=== PATIENT | male | born 1970 | race Caucasian/White ===

== ENCOUNTER 2019-11-10 16:25 | Emergency (ER) | payer OTHER ==
[2019-11-10 16:31] VITALS: TEMP 98.1
[2019-11-10] MEDS ORDERED: SODIUM CHLORIDE 0.9% 1,000 ML IV STA (16:34)
--- NOTE | 2019-11-10 16:35 | ED ---
Neuro HPI - General Chief Complaint: Neuro Symptoms/Deficit Stated Complaint: RT side numbness Time Seen by Provider: 11/10/19 16:34 Source: patient, RN notes reviewed, old records reviewed Mode of arrival: ambulatory Limitations: no limitations - History of Present Illness Is the patient presenting with stroke symptoms?: No -: hour(s) Initial Comments: This is a 48-year-old male with no significant medical history is a smoker presenting with right-sided numbness and tingling. Right-sided symptoms with no facial symptoms. No weakness no decrease in sensation. No prior history of same. Patient was doing nothing physically active at the time. Mr. gonzalez actually no headache today. No recent traumas no change in medications denies drug or alcohol abuse. Patient states symptoms are mildly improving on arrival to the hospital. Patient does not follow closely with the family physician and has no recent primary care evaluation Location: right arm, right leg History of same: No Place: home Severity: mild Quality: numb, tingling Improves With: time Worsens With: none On Anticoagulants: No Context: gradual onset Associated Symptoms: denies other symptoms Treatments Prior to Arrival: none - Related Data Allergies/Adverse Reactions: Allergies Allergy/AdvReac Type Severity Reaction Status Date / Time latex Allergy Rash/Hives Verified 11/10/19 16:28 Review of Systems ROS Statement: Those systems with pertinent positive or pertinent negative responses have been documented in the HPI. ROS Other: All systems not noted in ROS Statement are negative. General Exam Limitations: no limitations Stroke MDM - Lab Data Result diagrams: 11/10/19 16:45 11/10/19 16:45 Lab Results 11/10/19 11/10/19 11/10/19 Range/Units 16:45 16:45 16:45 WBC 13.2 H (3.8-10.6) k/uL RBC 5.29 (4.30-5.90) m/uL Hgb 15.5 (13.0-17.5) gm/dL Hct 46.8 (39.0-53.0) % MCV 88.5 (80.0-100.0) fL MCH 29.4 (25.0-35.0) pg MCHC 33.2 (31.0-37.0) g/dL RDW 13.0 (11.5-15.5) % Plt Count 288 (150-450) k/uL Neutrophils % 58 % Lymphocytes % 32 % Monocytes % 6 % Eosinophils % 3 % Basophils % 0 % Neutrophils # 7.6 (1.3-7.7) k/uL Lymphocytes # 4.2 (1.0-4.8) k/uL Monocytes # 0.8 (0-1.0) k/uL Eosinophils # 0.4 (0-0.7) k/uL Basophils # 0.0 (0-0.2) k/uL PT 9.7 (9.0-12.0) sec INR 0.9 (<1.2) APTT 25.3 (22.0-30.0) sec Sodium 138 (137-145) mmol/L Potassium 4.2 (3.5-5.1) mmol/L Chloride 106 (98-107) mmol/L Carbon Dioxide 23 (22-30) mmol/L Anion Gap 9 mmol/L BUN 14 (9-20) mg/dL Creatinine 0.60 L (0.66-1.25) mg/dL Est GFR (CKD-EPI)AfAm >90 (>60 ml/min/1.73 sqM) Est GFR (CKD-EPI)NonAf >90 (>60 ml/min/1.73 sqM) Glucose 93 (74-99) mg/dL Calcium 9.9 (8.4-10.2) mg/dL Total Bilirubin 0.5 (0.2-1.3) mg/dL AST 21 (17-59) U/L ALT 21 (4-49) U/L Alkaline Phosphatase 155 H (38-126) U/L Creatine Kinase 155 (55-170) U/L Troponin I (0.000-0.034) ng/mL Total Protein 7.6 (6.3-8.2) g/dL Albumin 4.4 (3.5-5.0) g/dL 11/10/19 Range/Units 16:45 WBC (3.8-10.6) k/uL RBC (4.30-5.90) m/uL Hgb (13.0-17.5) gm/dL Hct (39.0-53.0) % MCV (80.0-100.0) fL MCH (25.0-35.0) pg MCHC (31.0-37.0) g/dL RDW (11.5-15.5) % Plt Count (150-450) k/uL Neutrophils % % Lymphocytes % % Monocytes % % Eosinophils % % Basophils % % Neutrophils # (1.3-7.7) k/uL Lymphocytes # (1.0-4.8) k/uL Monocytes # (0-1.0) k/uL Eosinophils # (0-0.7) k/uL Basophils # (0-0.2) k/uL PT (9.0-12.0) sec INR (<1.2) APTT (22.0-30.0) sec Sodium (137-145) mmol/L Potassium (3.5-5.1) mmol/L Chloride (98-107) mmol/L Carbon Dioxide (22-30) mmol/L Anion Gap mmol/L BUN (9-20) mg/dL Creatinine (0.66-1.25) mg/dL Est GFR (CKD-EPI)AfAm (>60 ml/min/1.73 sqM) Est GFR (CKD-EPI)NonAf (>60 ml/min/1.73 sqM) Glucose (74-99) mg/dL Calcium (8.4-10.2) mg/dL Total Bilirubin (0.2-1.3) mg/dL AST (17-59) U/L ALT (4-49) U/L Alkaline Phosphatase (38-126) U/L Creatine Kinase (55-170) U/L Troponin I <0.012 (0.000-0.034) ng/mL Total Protein (6.3-8.2) g/dL Albumin (3.5-5.0) g/dL - NIH Stroke Scale 1a. Level of Consciousness: (0) alert 1b. LOC Questions: (0) answers correctly 1c. LOC Commands: (0) performs tasks correctly 2. Best Gaze: (0) normal 3. Visual: (0) no visual loss 4. Facial Palsy: (0) normal symmetrical movement 5a. Motor Arm Left: (0) no drift 5b. Motor Arm Right: (0) no drift 6a. Motor Leg Left: (0) no drift 6b. Motor Leg Right: (0) no drift 7. Limb Ataxia: (0) absent 8. Sensory: (0) normal 9. Best Language: (0) no aphasia 10. Dysarthria: (0) normal 11. Extinction/Inattention: (0) no abnormality - Thrombolytic Inclusion/Exclusion Thrombolytic Inclusion Criteria: Symptom Onset < 4.5 h Thrombolytic Contraindications: Rapidly Improving s/s - Radiology Data Radiology results: report reviewed (CT brain CT had neck negative for acute disease), image reviewed - EKG Data -: EKG Interpreted by Me (EKG shows sinus at rate of 94, PA 170, QRS 96, QTC 427) Past Medical History Past Medical History: No Reported History History of Any Multi-Drug Resistant Organisms: None Reported Past Surgical History: No Surgical Hx Reported Past Psychological History: No Psychological Hx Reported Smoking Status: Current every day smoker Past Alcohol Use History: None Reported Past Drug Use History: None Reported Course Vital Signs 11/10/19 11/10/19 11/10/19 16:26 17:10 17:55 Temperature 98.1 F Pulse Rate 104 H 90 78 Respiratory 18 16 16 Rate Blood Pressure 196/116 164/105 129/78 O2 Sat by Pulse 94 L 98 98 Oximetry - Reevaluation(s) Reevaluation #1: 11/10/19 18:15 records reviewed Reevaluation #2: 11/10/19 18:15 patientstates all symptoms are completely resolved, preferring discharge home Disposition Clinical Impression: Paresthesia of right arm and leg Disposition: HOME SELF-CARE Condition: Good Instructions (If sedation given, give patient instructions): Paresthesia (ED) Is patient prescribed a controlled substance at d/c from ED?: No Referrals: None,Stated [Primary Care Provider] - 1-2 days
--- NOTE | 2019-11-10 16:53 | CT ---
EXAMINATION TYPE: CT brain wo con for TPA DATE OF EXAM: 11/10/2019 COMPARISON: 12/29/2009 HISTORY: Right arm and leg weakness. CT DLP: 1004.5 mGycm Automated exposure control for dose reduction was used. There is mild cerebral atrophy. There is no mass effect nor midline shift. There is no sign of intrac ranial hemorrhage. Calvarium is intact. There is mucosal thickening in the frontal and ethmoid and ma xillary sinuses. I see no bony destructive process. IMPRESSION: Mild cerebral atrophy. No acute intracranial abnormality.. Sinusitis. Sinusitis also present on old e xam.
[2019-11-10 17:10] VITALS: RESP 16
[2019-11-10 17:23] LABS: Basophils % (A) 0 %; Eosinophils # (A) 0.4 k/uL (0-0.7); Eosinophils % (A) 3 %; HCT 46.8 % (39.0-53.0); HGB 15.5 gm/dL (13.0-17.5); Lymphocytes # (A) 4.2 k/uL (1.0-4.8); Lymphocytes % (A) 32 %; MCH 29.4 pg (25.0-35.0); MCHC 33.2 g/dL (31.0-37.0); MCV 88.5 fL (80.0-100.0); Mean Platelet Volume 10.5; Monocytes # (A) 0.8 k/uL (0-1.0); Monocytes % (A) 6 %; Neutrophils # (A) 7.6 k/uL (1.3-7.7); Neutrophils % (A) 58 %; Platelet Count 288 k/uL (150-450); RBC 5.29 m/uL (4.30-5.90); WBC 13.2 k/uL (3.8-10.6)
[2019-11-10 17:33] LABS: ALT 21 U/L (4-49); AST 21 U/L (17-59); African American GFR (CKD) >90 (>60 ml/min/1.73 sqM); Albumin 4.4 g/dL (3.5-5.0); Alkaline Phosphatase 155 U/L (38-126); Anion Gap 9 mmol/L; Blood Urea Nitrogen 14 mg/dL (9-20); Calcium 9.9 mg/dL (8.4-10.2); Carbon Dioxide 23 mmol/L (22-30); Chloride 106 mmol/L (98-107); Creatine Kinase 155 U/L (55-170); Glucose 93 mg/dL (74-99); INR 0.9 (<1.2); Non-African American GFR(CKD) >90 (>60 ml/min/1.73 sqM); Partial Thromboplastin Time 25.3 sec (22.0-30.0); Potassium 4.2 mmol/L (3.5-5.1); Prothrombin Time 9.7 sec (9.0-12.0); Sodium 138 mmol/L (137-145); Total Bilirubin 0.5 mg/dL (0.2-1.3); Total Protein 7.6 g/dL (6.3-8.2)
--- NOTE | 2019-11-10 17:36 | CT ---
EXAMINATION TYPE: CT angio head neck DATE OF EXAM: 11/10/2019 COMPARISON: None HISTORY: Right arm and leg weakness. CT DLP: 491.3 mGycm Automated exposure control for dose reduction was used. CONTRAST: Performed with IV Contrast, patient injected with 65 mL of Isovue 370. There are 3-D post processed images. There is normal branching pattern of the great vessels on the aortic arch. There is bilateral arteria l flow in the subclavian arteries. There is bilateral arterial flow in the vertebral arteries which a re fairly symmetric. There is arterial flow in the vertebrobasilar artery system. There is bilateral arterial flow in the common internal and external carotid arteries. There is minim al plaque at the carotid artery bifurcations. Lumen narrowing is less than 10%. There is no evidence of carotid or vertebral artery aneurysm or dissection. There is arterial flow in the anterior middle and posterior cerebral arteries. There is arterial flow in the posterior communicating arteries bilaterally. There is no mass effect. There is no evidence o f intracranial aneurysm or neovascularity. I see no sign of hemodynamic stenosis. There is normal con trast opacification of the venous sinuses. There is mucosal thickening in the ethmoid and maxillary sinuses. There is mucosal frontal sinus thic kening. IMPRESSION: Negative CT angiogram of the neck. Negative CT angiogram of the brain. Sinusitis.
[2019-11-10 17:56] VITALS: BP 129/78; PULSE 78
== END 2019-11-10 18:30 | disposition home or self-care (01) ==
LOC: EC 16:25
DX: R20.2 Paresthesia of skin (principal); R00.0 Tachycardia, unspecified; R20.0 Anesthesia of skin; F17.200 Nicotine dependence, unspecified, uncomplicated; Z91.040 Latex allergy status
CPT/HCPCS: 99285; 96360; 36415; 93005; 80053; 82550; 84484; 85025; 85610; 85730; 70496; 70450; 70498; Q9967

== ENCOUNTER 2019-11-11 13:47 | Inpatient (IN) | payer OTHER ==
[2019-11-11] MEDS ORDERED: SODIUM CHLORIDE 0.9% 500 ML 500 ML IV STA (14:18)
--- NOTE | 2019-11-11 14:26 | ED ---
General Adult HPI - General Chief complaint: Neuro Symptoms/Deficit Stated complaint: Recheck R Side Numbness Time Seen by Provider: 11/11/19 14:10 Source: patient Mode of arrival: wheelchair Limitations: no limitations - History of Present Illness Initial comments: Dictation was produced using [employer] dictation software. please excuse any grammatical, word or spelling errors. Chief Complaint: 48-year-old male presents today with strokelike symptoms. History of Present Illness: Patient is a 48-year-old male presents today with strokelike symptoms. Patient states he has paresthesias to his right arm and right lower leg. Patient was seen in the emergency department yesterday and diagnosed with paresthesias of the right arm and leg. Patient reports that during his stay in the emergency department his symptoms fully resolved. He was discharged and told to return to the emergency department if his symptoms return. Patient states that at 12 midnight symptoms came back. He took a nap and woke up with persistent symptoms. Satting come back to the emergency department. Patient complains of dealing sensation to his right arm and right leg. Patient also notes some weakness to his right side as well. The ROS documented in this emergency department record has been reviewed and confirmed by me. Those systems with pertinent positive or negative responses have been documented in the HPI. All other systems are other negative and/or noncontributory. PHYSICAL EXAM: General Impression: Alert and oriented x3, not in acute distress HEENT: Normocephalic atraumatic, extra-ocular movements intact, pupils equal and reactive to light bilaterally, mucous membranes moist. Cardiovascular: Heart regular rate and rhythm, S1&S2 audible, no murmurs, rubs or gallops Chest: Lungs clear to auscultation bilaterally, no rhonchi, no wheeze, no rales Abdomen: Bowel sounds present, abdomen soft, non-tender, non-distended, no organomegaly Musculoskeletal: Pulses present and equal in all extremities, no peripheral edema Motor: no focal deficits noted Neurological: CN II-XII grossly intact, no facial droop, mild drift of the right arm and right leg, and aphasic, not ataxic, diminished sensation to light touch of the right upper and right lower extremity. Skin: Intact with no visualized rashes Psych: Normal affect and mood ED course: 48-year-old male presents with strokelike symptoms. Patient had symptoms yesterday however his symptoms resolved and he was discharged home. Patient had recurrence of symptoms at 12 AM last night. Patient is outside of TPA window. Proximally 14 hours since his last known normal.. Signs upon arrival shows heart rate of 113. Patient given an NIH of 3 for right upper or lower extremity drift and sensory deficit to the right. Code stroke was paged. Chart review was performed from yesterday. Patient did have a CT and CT angiogram of the head and neck done yesterday. Both of those imaging studies were negative. Discussed patient case with Dr. Chopra who recommends patient be admitted for MRI. He did agree with repeating the noncontrast computed tomography scan of the head. She is given aspirin. Return evaluation obtained. Mild leukocytosis of 12.5. Coag panel unremark able. Metabolic panel is negative. Computed tomography scan of the brain was obtained showing no acute abnormalities. Patient's states that his symptoms improved only after the CT was obtained. Patient be admitted to Dr. covarrubias. Neurology on consultation. Patient given aspirin. EKG interpretation: Ventricular rate 86, normal sinus rhythm, UT interval 172, QRS 84, QTC 428. No UT prolongation, no QTC prolongation, no ST or T-wave changes noted. EKG compared to [default value] showing no changes. Overall, this EKG is unremarkable - Related Data Previous Rx's Medication Instructions Recorded Ciprofloxacin HCl [Cipro] 500 mg PO Q12HR #14 tablet 11/10/19 Allergies Allergy/AdvReac Type Severity Reaction Status Date / Time latex Allergy Rash/Hives Verified 11/11/19 14:03 Review of Systems ROS Statement: Those systems with pertinent positive or pertinent negative responses have been documented in the HPI. ROS Other: All systems not noted in ROS Statement are negative. Past Medical History Past Medical History: No Reported History History of Any Multi-Drug Resistant Organisms: None Reported Past Surgical History: No Surgical Hx Reported Past Psychological History: No Psychological Hx Reported Smoking Status: Current every day smoker Past Alcohol Use History: None Reported Past Drug Use History: None Reported General Exam Limitations: no limitations Course Vital Signs 11/11/19 11/11/19 11/11/19 14:01 14:10 15:06 Temperature 97.9 F Pulse Rate 113 H 76 104 H Respiratory 18 16 16 Rate Blood Pressure 144/93 131/75 150/86 O2 Sat by Pulse 99 99 99 Oximetry Medical Decision Making - Lab Data Result diagrams: 11/11/19 14:26 11/11/19 14:26 Lab Results 11/11/19 11/11/19 11/11/19 Range/Units 14:26 14:26 14:26 WBC 12.5 H (3.8-10.6) k/uL RBC 5.50 (4.30-5.90) m/uL Hgb 16.0 (13.0-17.5) gm/dL Hct 49.1 (39.0-53.0) % MCV 89.1 (80.0-100.0) fL MCH 29.0 (25.0-35.0) pg MCHC 32.5 (31.0-37.0) g/dL RDW 13.0 (11.5-15.5) % Plt Count 269 (150-450) k/uL Neutrophils % 67 % Lymphocytes % 24 % Monocytes % 4 % Eosinophils % 3 % Basophils % 0 % Neutrophils # 8.4 H (1.3-7.7) k/uL Lymphocytes # 3.0 (1.0-4.8) k/uL Monocytes # 0.5 (0-1.0) k/uL Eosinophils # 0.4 (0-0.7) k/uL Basophils # 0.0 (0-0.2) k/uL PT 10.2 (9.0-12.0) sec INR 0.9 (<1.2) APTT 24.2 (22.0-30.0) sec Sodium 140 (137-145) mmol/L Potassium 4.7 (3.5-5.1) mmol/L Chloride 106 (98-107) mmol/L Carbon Dioxide 24 (22-30) mmol/L Anion Gap 10 mmol/L BUN 15 (9-20) mg/dL Creatinine 0.63 L (0.66-1.25) mg/dL Est GFR (CKD-EPI)AfAm >90 (>60 ml/min/1.73 sqM) Est GFR (CKD-EPI)NonAf >90 (>60 ml/min/1.73 sqM) Glucose 123 H (74-99) mg/dL Calcium 9.8 (8.4-10.2) mg/dL Total Bilirubin 0.9 (0.2-1.3) mg/dL AST 22 (17-59) U/L ALT 22 (4-49) U/L Alkaline Phosphatase 141 H (38-126) U/L Troponin I (0.000-0.034) ng/mL Total Protein 7.4 (6.3-8.2) g/dL Albumin 4.1 (3.5-5.0) g/dL 11/11/ Range/Units 14:26 WBC (3.8-10.6) k/uL RBC (4.30-5.90) m/uL Hgb (13.0-17.5) gm/dL Hct (39.0-53.0) % MCV (80.0-100.0) fL MCH (25.0-35.0) pg MCHC (31.0-37.0) g/dL RDW (11.5-15.5) % Plt Count (150-450) k/uL Neutrophils % % Lymphocytes % % Monocytes % % Eosinophils % % Basophils % % Neutrophils # (1.3-7.7) k/uL Lymphocytes # (1.0-4.8) k/uL Monocytes # (0-1.0) k/uL Eosinophils # (0-0.7) k/uL Basophils # (0-0.2) k/uL PT (9.0-12.0) sec INR (<1.2) APTT (22.0-30.0) sec Sodium (137-145) mmol/L Potassium (3.5-5.1) mmol/L Chloride (98-107) mmol/L Carbon Dioxide (22-30) mmol/L Anion Gap mmol/L BUN (9-20) mg/dL Creatinine (0.66-1.25) mg/dL Est GFR (CKD-EPI)AfAm (>60 ml/min/1.73 sqM) Est GFR (CKD-EPI)NonAf (>60 ml/min/1.73 sqM) Glucose (74-99) mg/dL Calcium (8.4-10.2) mg/dL Total Bilirubin (0.2-1.3) mg/dL AST (17-59) U/L ALT (4-49) U/L Alkaline Phosphatase (38-126) U/L Troponin I <0.012 (0.000-0.034) ng/mL Total Protein (6.3-8.2) g/dL Albumin (3.5-5.0) g/dL Critical Care Time Critical Care Time: Yes (31) Disposition Clinical Impression: Stroke-like symptoms Disposition: ADMITTED IP TO THIS [facility] Condition: Fair Referrals: None,Stated [Primary Care Provider] - 1-2 days Decision Time: 15:35
[2019-11-11] MEDS ORDERED: ASPIRIN 81 MG PO STA (14:31)
[2019-11-11 14:44] LABS: Basophils % (A) 0 %; Eosinophils # (A) 0.4 k/uL (0-0.7); Eosinophils % (A) 3 %; HCT 49.1 % (39.0-53.0); Lymphocytes % (A) 24 %; MCHC 32.5 g/dL (31.0-37.0); MCV 89.1 fL (80.0-100.0); Mean Platelet Volume 9.8; Monocytes # (A) 0.5 k/uL (0-1.0); Monocytes % (A) 4 %; Neutrophils # (A) 8.4 k/uL (1.3-7.7); Neutrophils % (A) 67 %; Platelet Count 269 k/uL (150-450); WBC 12.5 k/uL (3.8-10.6)
--- NOTE | 2019-11-11 14:46 | CT ---
EXAMINATION TYPE: CT brain wo con DATE OF EXAM: 11/11/2019 COMPARISON: Yesterday HISTORY: Right sided weakness. CT DLP: 1070.4 mGycm Automated exposure control for dose reduction was used. Ventricles have normal size. There is no mass effect nor midline shift. There is no sign of intracran ial hemorrhage. There is mucosal thickening left maxillary sinus. There is ethmoid sinus mucosal thic kening. There is no evidence of cortical infarct. IMPRESSION: Mild Atrophy. No acute intracranial abnormality. Sinusitis. No change compared to yesterday.
[2019-11-11 14:52] LABS: ALT 22 U/L (4-49); AST 22 U/L (17-59); African American GFR (CKD) >90 (>60 ml/min/1.73 sqM); Albumin 4.1 g/dL (3.5-5.0); Alkaline Phosphatase 141 U/L (38-126); Anion Gap 10 mmol/L; Blood Urea Nitrogen 15 mg/dL (9-20); Calcium 9.8 mg/dL (8.4-10.2); Carbon Dioxide 24 mmol/L (22-30); Chloride 106 mmol/L (98-107); Glucose 123 mg/dL (74-99); Non-African American GFR(CKD) >90 (>60 ml/min/1.73 sqM); Potassium 4.7 mmol/L (3.5-5.1); Sodium 140 mmol/L (137-145); Total Bilirubin 0.9 mg/dL (0.2-1.3); Total Protein 7.4 g/dL (6.3-8.2)
[2019-11-11 15:09] LABS: INR 0.9 (<1.2); Partial Thromboplastin Time 24.2 sec (22.0-30.0); Prothrombin Time 10.2 sec (9.0-12.0)
[2019-11-12 06:28] LABS: Cholesterol 169 mg/dL (<200); HDL Cholesterol 26 mg/dL (40-60); LDL Cholesterol,Calculated 115 mg/dL (0-99); Triglycerides 140 mg/dL (<150)
--- NOTE | 2019-11-12 07:20 | XR ---
EXAMINATION TYPE: XR chest 1V DATE OF EXAM: 11/12/2019 HISTORY: leukocytosis . REFERENCE: Previous study dated 1:31 PM. FINDINGS: The lungs are clear. Pleural spaces are clear. Heart is not enlarged. IMPRESSION: NO ACTIVE INTRATHORACIC DISEASE
[2019-11-12] MEDS: ASPIRIN 325 MG TAB PO SCH (07:42)
[2019-11-12] MEDS: CYANOCOBALAMIN 500 MCG TAB PO SCH (07:42)
[2019-11-12] MEDS: HEPARIN SODIUM,PORCINE 5,000 UNIT/ML 1 ML VIAL SQ SCH ×2 (07:44→20:28)
[2019-11-12] MEDS: FAMOTIDINE 20 MG/2 ML VIAL IV SCH ×2 (07:44→20:28)
[2019-11-12 08:55] LABS: Basophils % (A) 0 %; Eosinophils # (A) 0.3 k/uL (0-0.7); Eosinophils % (A) 3 %; HCT 47.7 % (39.0-53.0); HGB 15.5 gm/dL (13.0-17.5); Lymphocytes # (A) 3.1 k/uL (1.0-4.8); Lymphocytes % (A) 33 %; MCH 29.5 pg (25.0-35.0); MCHC 32.4 g/dL (31.0-37.0); MCV 90.9 fL (80.0-100.0); Mean Platelet Volume 11.1; Monocytes # (A) 0.5 k/uL (0-1.0); Monocytes % (A) 5 %; Neutrophils # (A) 5.4 k/uL (1.3-7.7); Neutrophils % (A) 57 %; Platelet Count 262 k/uL (150-450); RBC 5.25 m/uL (4.30-5.90); WBC 9.5 k/uL (3.8-10.6)
--- NOTE | 2019-11-12 09:00 | P.HPIM ---
History of Present Illness this is a pleasant 48 years old male with no significant past medical history. And he does not follow up with family physician. He works as high low taxi driver He presents with recurrent numbness and weakness in his right side and a lesser extent in the left upper extremity. Patient came to emergency room when day earlier for the same symptoms with some improvement has been discharged, he came again yesterday with similar symptoms. Patient mainly complaining of from numbness in the right upper and lower extremity and to lesser extent the left upper extremity. Patient states also he has some mild weakness and on examination his right side strength was suspicious as 4+/5, however there was minimal difference between both sides. Patient denies headache. No blurred vision or difficulty swallowing. No facial the patient. He smokes about 1 pack per day but he denies alcohol or illicit tracts patient is counseled and he does not want to quit. Patient denies nicotine patch on admission patient was tachycardic, however later on his vitals are more stable. labs show a leukocytosis of 12.5 K, with unremarkable INR, BMP and liver enzymes were unremarkable as well.troponin is negative.. EKG showing normal sinus rhythm at 86with no significant ST-T changes. CT of the brain showing mild atrophy with no acute intracranial abnormality. Chest x-ray and urinalysis were unremarkable. on admission patient was started on aspirin 325 mg Review of Systems CONSTITUTIONAL: No fever, no malaise, no fatigue. HEENT: No recent visual problems or hearing problems. Denied any sore throat. CARDIOVASCULAR: No orthopnea, PND, no palpitations, no syncope. PULMONARY: No shortness of breath, no cough, no hemoptysis. GASTROINTESTINAL: No diarrhea, no nausea, no vomiting, no abdominal pain. N ormoactive bowel sounds. NEUROLOGICAL: No headaches, no weakness, no numbness. HEMATOLOGICAL: Denies any bleeding or petechiae. GENITOURINARY: Denies any burning micturition, frequency, or urgency. MUSCULOSKELETAL/RHEUMATOLOGICAL: Denies any joint pain, swelling, or any muscle pain. ENDOCRINE: Denies any polyuria or polydipsia. Past Medical History Past Medical History: No Reported History History of Any Multi-Drug Resistant Organisms: None Reported Past Surgical History: No Surgical Hx Reported Additional Past Surgical History / Comment(s): Broke his left arm as a child. Broken nose and procedure to fix. Additional Past Anesthesia/Blood Transfusion Reaction / Comment(s): No previous blood transfusions. Past Psychological History: No Psychological Hx Reported Smoking Status: Current every day smoker Past Alcohol Use History: None Reported Past Drug Use History: None Reported - Past Family History Father Additional Family Medical History / Comment(s): Dad passed of heart disease at age 56. Had early onset Alzheimers. Mother History Unknown: Yes Additional Family Medical History / Comment(s): No known history, still living. Medications and Allergies Home Medications Medication Instructions Recorded Confirmed Type Cyanocobalamin (Vitamin B-12) 1,000 mcg PO DAILY 11/11/19 11/11/19 History [Vitamin B-12] Allergies Allergy/AdvReac Type Severity Reaction Status Date / Time latex Allergy Rash/Hives Verified 11/11/19 16:20 Physical Exam Vitals: Vital Signs Temp Pulse Pulse Resp BP BP Pulse Ox 11/12/19 03:20 98.1 F 91 16 130/71 99 11/11/19 23:30 98.3 F 95 16 126/65 96 11/11/19 19:30 98.2 F 92 16 127/67 96 11/11/19 17:07 76 16 131/76 99 11/11/19 16:13 81 16 133/87 99 11/11/19 16:06 97.7 F 92 16 135/81 95 11/11/19 15:06 104 H 16 150/86 99 11/11/19 14:10 76 16 131/75 99 11/11/19 14:01 97.9 F 113 H 18 144/93 99 Intake and Output 11/11/19 11/11/19 11/12/19 14:59 22:59 06:59 Intake Total 237 Balance 237 Intake: Oral 237 Other: # Voids 0 # Bowel Movements 0 Weight 78.925 kg 78.925 kg 76 kg GENERAL: The patient is alert and oriented x3, not in any acute distress. Well developed, well nourished. HEENT: Pupils are round and equally reacting to light. EOMI. No scleral icterus. No conjunctival pallor. Normocephalic, atraumatic. No pharyngeal erythema. No thyromegaly. CARDIOVASCULAR: S1 and S2 present. No murmurs, rubs, or gallops. PULMONARY: Chest is clear to auscultation, no wheezing or crackles. ABDOMEN: Soft, nontender, nondistended, normoactive bowel sounds. No palpable organomegaly. MUSCULOSKELETAL: No joint swelling or deformity. EXTREMITIES: No cyanosis, clubbing, or pedal edema. -NEUROLOGICAL: Cranial nerves are grossly intact. Right side strength is 4+/5 and sensation is intact in both sides. Left upper extremity strength is 4+/5 SKIN: No rashes. No petechiae Results CBC & Chem 7: 11/11/19 14:26 11/11/19 14:26 Labs: Abnormal Lab Results - Last 24 Hours (Table) 11/11/19 11/11/19 Range/Units 14:26 14:26 WBC 12.5 H (3.8-10.6) k/uL Neutrophils # 8.4 H (1.3-7.7) k/uL Creatinine 0.63 L (0.66-1.25) mg/dL Glucose 123 H (74-99) mg/dL Alkaline Phosphatase 141 H (38-126) U/L Thrombosis Risk Factor Assmnt - Choose All That Apply Any of the Below Risk Factors Present?: Yes Each Factor Represents 1 point: Age 41-60 years Other Risk Factors: No Thrombosis Risk Factor Assessment Total Risk Factor Score: 1 Thrombosis Risk Factor Assessment Level: Low Risk Assessment and Plan Assessment: Right side numbness and the sextant in the left upper extremity. Rule out TIA Mild leukocytosis, resolved mild cerebral atrophy Nicotine dependence Plan: this is a pleasant 48 years old male who presents with TIA. Continue with the neuro check. Check echocardiogram, check carotid duplex. Order chest x-ray and urinalysis. Neurology consult. Continue with aspirin Labs and medication were reviewed.. Continue same treatment. Continue with symptomatic treatment. Resume home medication. Monitor lytes and vitals. DVT and GI prophylaxis. Further recommendations of the clinical course of the patient DVT prophylaxis: Subcutaneous heparin GI Prophylaxis: Pepcid PT/OT: Pending Prognosis is guarded
[2019-11-12 10:05] LABS: Appearance,Urine Clear (Clear); Bilirubin,Urine Negative (Negative); Blood,Urine Negative (Negative); Color,Urine Light Yellow; Glucose,Urine (UA) Negative (Negative); Ketones,Urine Negative (Negative); Leukocyte Esterase,Urine Negative (Negative); Nitrite,Urine Negative (Negative); Protein,Urine Negative (Negative); Specific Gravity,Urine 1.004 (1.001-1.035); Urobilinogen,Urine <2.0 mg/dL (<2.0)
--- NOTE | 2019-11-12 11:48 | P.CNNES ---
History of Present Illness Consult date: 11/12/19 Requesting physician: Joseph Stokes Reason for Consult: TIA Chief complaint: right-sided weakness and numbness History of Present Illness: Mr. Al Santos is a 48-year-old, right-handed male who was seen in neurologic consultation on November 12, 2019, via teleneurology. He reported to the emergency department yesterday with complaints of numbness and weakness in his right leg. He also noted numbness and weakness in his right upper extremity which then began to involve his left upper extremity. Apparently the symptoms had been present the day before, at which time he also presented to the ER. His symptoms resolved and he was discharged home. He was advised to return if his symptoms returned. Patient reports that he was on break at work, when his symptoms began. He n oticed it initially in his right leg. He denies headache, neck pain and speech difficulties. He denies difficulty swallowing, facial numbness and weakness as well as changes in vision. Mr. Santos notes that when he came into the emergency department and was advised to sign his name, he was unable to. Mr. Santos denies a history of similar symptoms. He denies neck pain and headache. This morning, he feels as if his strength is a little bit better. Review of Systems All systems: negative Constitutional: Denies chills, Denies fever Past Medical History Past Medical History: No Reported History History of Any Multi-Drug Resistant Organisms: None Reported Past Surgical History: No Surgical Hx Reported Additional Past Surgical History / Comment(s): Broke his left arm as a child. Broken nose and procedure to fix. Additional Past Anesthesia/Blood Transfusion Reaction / Comment(s): No previous blood transfusions. Past Psychological History: No Psychological Hx Reported Smoking Status: Current every day smoker Past Alcohol Use History: None Reported Past Drug Use History: None Reported - Past Family History Father Additional Family Medical History / Comment(s): Dad passed of heart disease at age 56. Had early onset Alzheimers. Mother History Unknown: Yes Additional Family Medical History / Comment(s): No known history, still living. Medications and Allergies Home Medications Medication Instructions Recorded Confirmed Type Cyanocobalamin (Vitamin B-12) 1,000 mcg PO DAILY 11/11/19 11/11/19 History [Vitamin B-12] Allergies Allergy/AdvReac Type Severity Reaction Status Date / Time latex Allergy Rash/Hives Verified 11/11/19 16:20 Physical Examination - Vital Signs Vital Signs: Vital Signs Temp Pulse Pulse Resp BP BP Pulse Ox 11/12/19 07:33 97.5 F L 84 18 136/79 98 11/12/19 03:20 98.1 F 91 16 130/71 99 11/11/19 23:30 98.3 F 95 16 126/65 96 11/11/19 19:30 98.2 F 92 16 127/67 96 11/11/19 17:07 76 16 131/76 99 11/11/19 16:13 81 16 133/87 99 11/11/19 16:06 97.7 F 92 16 135/81 95 11/11/19 15:06 104 H 16 150/86 99 11/11/19 14:10 76 16 131/75 99 11/11/19 14:01 97.9 F 113 H 18 144/93 99 Intake and Output 11/11/19 11/12/19 11/12/19 22:59 06:59 14:59 Intake Total 237 240 Balance 237 240 Intake: Oral 237 240 Other: Voiding Method Toilet # Voids 0 1 # Bowel Movements 0 0 Weight 78.925 kg 76 kg Gen.: Patient is reclining in the bed. He is well-nourished, well-developed and in no acute distress. HEENT: Head is atraumatic, normocephalic. Fundus not visualized. There is no scleral icterus. Mucous membranes are moist. Neck: Supple without carotid bruits. Heart: Regular rate and rhythm Lungs: Clear to auscultation. Neurological examination Mental status: Patient is awake, alert and oriented 3. His speech is clear. There is no dysarthria or aphasia. Cranial nerves: Pupils are equal, round and reactive to light. Visual camacho are full to confrontation. Extraocular muscles are intact. There is no nystag mus. Facial sensation is intact. There is no facial asymmetry. Uvula and palate are midline. Shoulder shrug is symmetric. Tongue protrudes midline. 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 Proximal right upper extremity strength is 4+-5. Bilateral lower extremity strength is 5/5. Sensation: Intact to touch throughout. Coordination: There is right-sided dysmetria with [id number] testing. There is mild right-sided ataxia on [id number] testing. With rolling of the arms, the left arm rolls around the right arm. Deep tendon reflexes: 2+/4+ throughout. Plantar responses are equivocal. Gait: Not assessed Results CT scan of the brain reveals mild atrophy. No signs of acute hemorrhage or infarct. - Laboratory Findings CBC and BMP: 11/12/19 05:37 11/11/19 14:26 Abnormal Lab Findings: Abnormal Labs 11/11/19 11/11/19 11/12/19 14:26 14:26 05:37 WBC 12.5 H Neutrophils # 8.4 H Creatinine 0.63 L Glucose 123 H Alkaline Phosphatase 141 H LDL Cholesterol, Calc 115 H HDL Cholesterol 26 L Assessment and Plan Assessment: Impressions: 1) patient is a 48-year-old male with continued right-sided weakness, not involving the face. This weakness is likely secondary to a left-sided lacunar infarction. 2) tobacco abuse 3) leukocytosis 4) elevated alkaline phosphatase Plan: Recommendations: 1) MRI of the brain without gadolinium, to further elucidate stroke 2) patient should be started on aspirin 81 mg daily 3) high-dose statin should be started for stroke prevention 4) 2-D echocardiogram and carotid Doppler 5) physical therapy and occupational therapy consultations 6) speech therapy consultation Time with Patient: Greater than 30 (Pt is seen via teleneurology)
[2019-11-13] MEDS: CYANOCOBALAMIN 500 MCG TAB PO SCH (08:02)
[2019-11-13] MEDS: HEPARIN SODIUM,PORCINE 5,000 UNIT/ML 1 ML VIAL SQ SCH ×2 (08:02→20:12)
[2019-11-13] MEDS: FAMOTIDINE 20 MG TAB PO SCH ×2 (08:02→20:12)
[2019-11-13] MEDS: ASPIRIN 325 MG TAB PO SCH (08:02)
--- NOTE | 2019-11-13 15:10 | MR ---
MR brain without contrast HISTORY: Cerebral vascular accident, stroke, right-sided weakness Correlation to head CT 11/11/2019 Multiplanar multisequence imaging through the brain The left thalamus shows restricted diffusion consistent with acute/subacute infarct, corresponding de nsity changes on CT, signal changes on MRI are noted on T1, T2 and inversion recovery sequences. Ther e is no hemorrhage or hydrocephalus. Corpus callosum, pituitary, cervical medullary junction, cerebel lopontine angles are unremarkable. Extensive inflammatory change present within the mastoid air cells bilaterally, mucosal disease prese nt in the right maxillary sinus, air-fluid level in the left maxillary sinus, frontal sinus, correlat e for sinusitis. There are normal vascular flow voids. Orbits show symmetric appearance. IMPRESSION: Findings consistent with patient's history of cerebrovascular accident. Correlate for sin usitis, mastoiditis.
--- NOTE | 2019-11-13 18:55 | ECHOF ---
Referral Reason:tia MEASUREMENTS -------- HEIGHT: 182.9 cm WEIGHT: 75.7 kg BP: 125/63 RVIDd: 3.7 cm (< 3.3) IVSd: 1.3 cm (0.6 - 1.1) LVIDd: 3.8 cm (3.9 - 5.3) LVPWd: 1.2 cm (0.6 - 1.1) IVSs: 1.7 cm LVIDs: 2.7 cm LVPWs: 1.8 cm LAESV Index (A-L): 32.24 ml/m Ao Diam: 3.0 cm (2.0 - 3.7) AV Cusp: 1.9 cm (1.5 - 2.6) LA Diam: 4.3 cm (2.7 - 3.8) MV EXCURSION: 15.243 mm (> 18.000) MV EF SLOPE: 99 mm/s (70 - 150) EPSS: 0.7 cm MV E Nixon: 0.76 m/s MV DecT: 222 ms MV A Nixon: 0.86 m/s MV E/A Ratio: 0.88 RAP: 5.00 mmHg RVSP: 31.81 mmHg FINDINGS -------- Sinus rhythm. This was a technically adequate study. The left ventricular size is normal. There is mild concentric left ventricular hypertrophy. Overa ll left ventricular systolic function is normal with, an EF between 55 - 60 %. The diastolic fillin g pattern is normal for the age of the patient 9.97. The right ventricle is mildly enlarged. LA is midly dilated 29-33ml/m2. The right atrium is mildly enlarged. Interatrial and interventricular septum intact. The aortic valve is trileaflet and appears structurally normal. There is no evidence of aortic regu rgitation. There is no evidence of aortic stenosis. There is trace mitral regurgitation. Mild tricuspid regurgitation present. There is borderline pulmonary artery hypertension. The righ t ventricular systolic pressure, as measured by Doppler, is 31.81mmHg. There is no pulmonic regurgitation present. The aortic root size is normal. The inferior vena cava is mildly dilated. There is no pericardial effusion. CONCLUSIONS -------- 1. Sinus rhythm. 2. This was a technically adequate study. 3. The left ventricular size is normal. 4. There is mild concentric left ventricular hypertrophy. 5. Overall left ventricular systolic function is normal with, an EF between 55 - 60 %. 6. The diastolic filling pattern is normal for the age of the patient 9.97 7. The right ventricle is mildly enlarged. 8. LA is midly dilated 29-33ml/m2. 9. The right atrium is mildly enlarged. 10. Interatrial and interventricular septum intact. 11. The aortic valve is trileaflet and appears structurally normal. 12. There is no evidence of aortic regurgitation. 13. There is no evidence of aortic stenosis. 14. There is trace mitral regurgitation. 15. Mild tricuspid regurgitation present. 16. There is borderline pulmonary artery hypertension. 17. The right ventricular systolic pressure, as measured by Doppler, is 31.81mmHg. 18. There is no pulmonic regurgitation present. 19. The aortic root size is normal. 20. The inferior vena cava is mildly dilated. 21. There is no pericardial effusion. ASSOCIATE EDITOR: Elaine Murphy RDCS
--- NOTE | 2019-11-13 21:25 | P.PN ---
Progress Note - Text Progress Note Date: 11/13/19 Subjective: Patient continues to report R-sided weakness along with numbness and tingling. Denies any headache, nausea, vomiting, worsening weakness or paresthesias. Patient has been working with therapists, recommended using walker for safety. Objective: Gen.: NAD Neurological examination Mental status: Patient is awake, alert and oriented 3. His speech is clear. There is no dysarthria or aphasia. Cranial nerves: Pupils are equal, round and reactive to light. Visual camacho are full to confrontation. Extraocular muscles are intact. There is no nystagmus. Facial sensation is intact. There is no facial asymmetry. Uvula and palate are midline. Shoulder shrug is symmetric. Tongue protrudes midline. 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 Proximal right upper extremity strength is 4+/5. Bilateral lower extremity strength is 5/5. Sensation: Decreased sensation to LT In RUE and RLE Coordination: There is right-sided dysmetria with [id number] testing. Deep tendon reflexes: 2+/4+ throughout. Plantar responses are equivocal. Gait: Cautious gait, prefers L over right. 11/11/19 14:26 Abnormal Lab Findings: Abnormal Labs 11/11/19 11/11/19 11/12/19 14:26 14:26 05:37 WBC 12.5 H Neutrophils # 8.4 H Creatinine 0.63 L Glucose 123 H Alkaline Phosphatase 141 H LDL Cholesterol, Calc 115 H HDL Cholesterol 26 L Results: MRI brain w/o contrast: acute L thalamic stroke TTE: SR, EF 55-60%. LV normal size. RV is mildly enlarged. LA is mildly dilated. RA is mildly dilated. Interatrial and interventricular septum intact. Assessment and Plan Assessment: Mr. Santos is a 48-year-old male with continued right-sided weakness, not involving the face. This weakness is likely secondary to a left-sided lacunar infarction. MRI brain showing L thalamic stroke, etiology small vessel disease. Patient is a heavy smoker. Recommendations: 1) aspirin 81 mg daily 2) atorvastatin 80mg qhs 3) follow up with outpatient neurologist within 2-3 weeks of discharge. 4) Discussed the importance of preventing future strokes, especially with quitting smoking, eating better and exercising. Patient showed understanding 5) Neurology will sign off at this time. Please contact us again with additional questions or concerns.
[2019-11-14 08:45] VITALS: TEMP 98.1
[2019-11-14] MEDS: HEPARIN SODIUM,PORCINE 5,000 UNIT/ML 1 ML VIAL SQ SCH (09:10)
[2019-11-14] MEDS: FAMOTIDINE 20 MG TAB PO SCH (09:10)
[2019-11-14] MEDS: CYANOCOBALAMIN 500 MCG TAB PO SCH (09:10)
[2019-11-14] MEDS: ASPIRIN 325 MG TAB PO SCH (09:10)
[2019-11-14 15:41] VITALS: BP 132/70; PULSE 75; RESP 17
--- NOTE | 2019-12-07 20:32 | P.PN ---
Subjective Progress Note Date: 11/13/19 Principal diagnosis: Acute CVA this is a pleasant 48 years old male with no significant past medical history. And he does not follow up with family physician. He works as high low regional tanker truck driver He presents with recurrent numbness and weakness in his right side and a lesser extent in the left upper extremity. Patient came to emergency room when day earlier for the same symptoms with some improvement has been discharged, he came again yesterday with similar symptoms. Patient mainly complaining of from numbness in the right upper and lower extremity and to lesser extent the left upper extremity. Patient states also he has some mild weakness and on examination his right side strength was suspicious as 4+/5, however there was minimal difference between both sides. Patient denies headache. No blurred vision or difficulty swallowing. No facial the patient. He smokes about 1 pack per day but he denies alcohol or illicit tracts patient is counseled and he does not want to quit. Patient denies nicotine patch on admission patient was tachycardic, however later on his vitals are more stable. labs show a leukocytosis of 12.5 K, with unremarkable INR, BMP and liver enzymes were unremarkable as well.troponin is negative.. EKG showing normal sinus rhythm at 86with no significant ST-T changes. CT of the brain showing mild atrophy with no acute intracranial abnormality. Chest x-ray and urinalysis were unremarkable. on admission patient was started on aspirin 325 mg 11/13/2019 Patient continues to have right-sided weakness along with numbness and tingling.Denies any headache, nausea, vomiting, worsening weakness or paresthesias. Patient is part spreading in physical therapy. Speech and swallow evaluation is pending. No headache or dizziness or lightheadedness. MRI of the brain is suggestive of infarction. Neurology is following. Patient is being continued on aspirin. No chest pain or shortness of breath. Current medications reviewed. Objective - Vital Signs Vital signs: Vital Signs Temp 98.2 F 11/13/19 16:47 Pulse 84 11/13/19 16:47 Resp 16 11/13/19 16:47 BP 130/79 11/13/19 16:47 Pulse Ox 98 11/13/19 16:47 Intake & Output 11/13/19 11/13/19 11/14/19 06:59 18:59 06:59 Intake Total 237 1134 Balance 237 1134 Weight 76.1 kg Intake: Oral 237 1134 Other: Voiding Method Toilet Toilet Urinal Urinal # Voids 2 # Bowel Movements 1 - Exam GENERAL: The patient is alert and oriented x3, not in any acute distress. Well developed, well nourished. HEENT: Pupils are round and equally reacting to light. EOMI. No scleral icterus. No conjunctival pallor. Normocephalic, atraumatic. No pharyngeal erythema. No thyromegaly. CARDIOVASCULAR: S1 and S2 present. No murmurs, rubs, or gallops. PULMONARY: Chest is clear to auscultation, no wheezing or crackles. ABDOMEN: Soft, nontender, nondistended, normoactive bowel sounds. No palpable organomegaly. MUSCULOSKELETAL: No joint swelling or deformity. EXTREMITIES: No cyanosis, clubbing, or pedal edema. -NEUROLOGICAL: Cranial nerves are grossly intact. Right side strength is 4+/5 and sensation is intact in both sides. Left upper extremity strength is 4+/5 SKIN: No rashes. No petechiae - Labs CBC & Chem 7: 11/12/19 05:37 11/11/19 14:26 Assessment and Plan Assessment: Right side numbness and weakness in the left upper extremity due to acute CVA. MRI showed left thalamic stroke, etiology small vessel disease.. Mild leukocytosis, resolved mild cerebral atrophy Nicotine dependence Plan: this is a pleasant 48 years old male who presents with acute CVA. Continue with the neuro check. Check echocardiogram, check carotid duplex. Order chest x-ray and urinalysis. Neurology is following. Continue with aspirin 81 mg daily and atorvastatin 80 mg daily at bedtime. Follow-up with outpatient neurologist in 2-3 weeks after discharge. Smoking cessation has been counseled extensively. Labs and medication were reviewed.. Continue same treatment. Continue with symptomatic treatment. Resume home medication. Monitor lytes and vitals. DVT and GI prophylaxis. Further recommendations of the clinical course of the patient DVT prophylaxis: Subcutaneous heparin GI Prophylaxis: Pepcid PT/OT: Pending Prognosis is guarded Time with Patient: Greater than 30
--- NOTE | 2019-12-07 20:34 | P.DS ---
Providers Date of admission: 11/11/19 15:35 Expected date of discharge: 11/14/19 Attending physician: Joseph Stokes MD Consults: 11/11/19 15:35 Consult Physician Routine Consulting Provider: Courtney Tolentino Consult Reason/Comments: stroke like symptoms Do you want consulting provider notified?: Yes Primary care physician: Stated None Hospital Course: Discharge diagnosis Right side numbness and weakness in the left upper extremity due to acute CVA. MRI showed left thalamic stroke, etiology small vessel disease.. Mild leukocytosis, resolved mild cerebral atrophy Nicotine dependence Hospital course this is a pleasant 48 years old male with no significant past medical history. And he does not follow up with family physician. He works as high low armor reconnaissance vehicle driver He presents with recurrent numbness and weakness in his right side and a lesser extent in the left upper extremity. Patient came to emergency room when day earlier for the same symptoms with some improvement has been discharged, he came again yesterday with similar symptoms. Patient mainly complaining of from numbness in the right upper and lower extremity and to lesser extent the left upper extremity. Patient states also he has some mild weakness and on examination his right side strength was suspicious as 4+/5, however there was minimal difference between both sides. Patient denies headache. No blurred vision or difficulty swallowing. No facial the patient. He smokes about 1 pack per day but he denies alcohol or illicit tracts patient is counseled and he does not want to quit. Patient denies nicotine patch on admission patient was tachycardic, however later on his vitals are more stable. labs show a leukocytosis of 12.5 K, with unremarkable INR, BMP and liver enzymes were unremarkable as well.troponin is negative.. EKG showing normal sinus rhythm at 86with no significant ST-T changes. CT of the brain showing mild atrophy with no acute intracranial abnormality. Chest x-ray and urinalysis were unremarkable. on admission patient was started on aspirin 325 mg 11/13/2019 Patient continues to have right-sided weakness along with numbness and tingling.Denies any headache, nausea, vomiting, worsening weakness or paresthesias. Patient is part spreading in physical therapy. Speech and swallow evaluation is pending. No headache or dizziness or lightheadedness. MRI of the brain is brown ggestive of infarction. Neurology is following. Patient is being continued on aspirin. No chest pain or shortness of breath. 2018 Patient denied any complaints of chest pain or shortness of breath. Right sided weakness with slight improvement. Able to swallow without aspiration. Tolerating oral diet. No other acute overnight issues. Continue with aspirin 81 mg daily and atorvastatin 80 mg daily at bedtime. Follow-up with outpatient neurologist in 2-3 weeks after discharge. Smoking cessation has been counseled extensively. GENERAL: The patient is alert and oriented x3, not in any acute distress. Well developed, well nourished. HEENT: Pupils are round and equally reacting to light. EOMI. No scleral icterus. No conjunctival pallor. Normocephalic, atraumatic. No pharyngeal erythema. No thyromegaly. CARDIOVASCULAR: S1 and S2 present. No murmurs, rubs, or gallops. PULMONARY: Chest is clear to auscultation, no wheezing or crackles. ABDOMEN: Soft, nontender, nondistended, normoactive bowel sounds. No palpable organomegaly. MUSCULOSKELETAL: No joint swelling or deformity. EXTREMITIES: No cyanosis, clubbing, or pedal edema. -NEUROLOGICAL: Cranial nerves are grossly intact. Right side strength is 4+/5 and sensation is intact in both sides. Left upper extremity strength is 4+/5 SKIN: No rashes. No petechiae Discharge vitals reviewed. Total time taken greater than 35 minutes including 18 minutes for counseling and coordination of care. Patient Condition at Discharge: Fair Plan - Discharge Summary Discharge Rx Participant: No New Discharge Prescriptions: New Aspirin [Adult Low Dose Aspirin EC] 81 mg PO DAILY #30 tablet. Atorvastatin [Lipitor] 80 mg PO HS #30 tab Continue Cyanocobalamin (Vitamin B-12) [Vitamin B-12] 1,000 mcg PO DAILY Discharge Medication List Cyanocobalamin (Vitamin B-12) [Vitamin B-12] 1,000 mcg PO DAILY 11/11/19 [History] Aspirin [Adult Low Dose Aspirin EC] 81 mg PO DAILY #30 tablet. 11/14/19 [Rx] Atorvastatin [Lipitor] 80 mg PO HS #30 tab 11/14/19 [Rx] Follow up Appointment(s)/Referral(s): Enedina Arshad MD [STAFF PHYSICIAN] - 11/24/19 9:00 am (Wednesday) [facility] [NON-STAFF] - 12/05/19 8:30 am (Wednesday (Primary care doctor) -please bring your photo ID, list of all medications, and last years tax return or last 3 pay stubs if you have them) Patient Instructions/Handouts: How to Stop Smoking (DC), Ischemic Stroke (DC) Discharge Disposition: HOME SELF-CARE
== END 2019-11-14 14:50 | disposition home or self-care (01) | DRG 65 ==
LOC: EC 13:47 → 3SCARD 15:35
PROVIDERS: ADMIT Internal Medicine; ATTEND Internal Medicine
DX: I63.9 Cerebral infarction, unspecified (principal); G81.93 Hemiplegia, unspecified affecting right nondominant side; F17.210 Nicotine dependence, cigarettes, uncomplicated; G31.9 Degenerative disease of nervous system, unspecified; Z98.890 Other specified postprocedural states; Z82.49 Family history of ischemic heart disease and other diseases of the circulatory system; Z81.8 Family history of other mental and behavioral disorders; Z91.040 Latex allergy status
CPT/HCPCS: 36415; 70450; 70551; 71045; 80053; 80061; 81003; 84484; 85025; 85610; 85730; 93005; 93306; 99291

== ENCOUNTER 2024-10-28 22:07 | Inpatient (IN) | payer OTHER ==
[2024-10-28] MEDS: NITROGLYCERIN SL TABS 0.4 MG TAB SUBLINGUAL STA ×2 (22:11→22:25)
[2024-10-28] MEDS: methylPREDNISolone SOD SUCCI 125 MG/2 ML VIAL IV STA (22:18)
--- NOTE | 2024-10-28 22:21 | ED ---
General Adult HPI - General Chief complaint: Shortness of Breath Stated complaint: MG Source: patient, EMS Mode of arrival: EMS Limitations: no limitations - History of Present Illness Initial comments: Patient is a 53-year-old male past medical history of smoking presenting today for shortness of breath. He presents via EMS on CPAP limiting initial history gathering. Patient states he has had intermittent cough over the last month nonproductive of blood or sputum. He does currently smoke cigarettes. He has not been diagnosed with COPD in the past. Endorses sharp left-sided chest pain worsened with coughing and inspiration. No history of prior CAD/IN. States he has felt hot and cold off and on when asked about fever and chills but no measured fevers. No lower extremity swelling. - Related Data Previous Rx's Medication Instructions Recorded Aspirin [Adult Low Dose Aspirin EC] 81 mg PO DAILY #30 tablet. 11/14/19 Allergies Allergy/AdvReac Type Severity Reaction Status Date / Time latex Allergy Rash/Hives Verified 10/29/24 08:23 nut - unspecified Allergy Anaphylaxis Verified 10/29/24 08:23 Review of Systems ROS Statement: Those systems with pertinent positive or pertinent negative responses have been documented in the HPI. Limitations: ROS unobtainable due to patients medical condition Past Medical History Past Medical History: CVA/TIA History of Any Multi-Drug Resistant Organisms: None Reported Past Surgical History: No Surgical Hx Reported Additional Past Surgical History / Comment(s): Broke his left arm as a child. Broken nose and procedure to fix. Additional Past Anesthesia/Blood Transfusion Reaction / Comment(s): No previous blood transfusions. Past Psychological History: No Psychological Hx Reported Smoking Status: Current every day smoker Past Alcohol Use History: None Reported Past Drug Use History: None Reported - Past Family History Father Additional Family Medical History / Comment(s): Dad passed of heart disease at age 56. Had early onset Alzheimers. Mother History Unknown: Yes Additional Family Medical History / Comment(s): No known history, still living. General Exam - General Exam Comments Initial Comments: PE: CONSTITUTIONAL in acute distress, ill-appearing, tachypneic on CPAP transition to BiPAP SKIN: Cool, dry, pale, no jaundice, hives or petechiae] EYES: Pupils are equally round, extraocular movements intact without nystagmus, clear conjunctiva, non-icteric sclera HENT: Normocephalic, atraumatic, moist mucus membranes, oropharynx clear without exudates NECK: , Full range of motion, normal appearance PULMONARY: Minimal breath sounds bilaterally with decreased air movement scant wheezes, no rhonchi, rales, accessory muscle use+, decreased excursion no stridor CARDIOVASCULAR: Tachycardia, regular rate and rhythm normal S1 and S2. No appreciated murmurs, rubs or gallops. Strong radial pulses with intact distal perfusion. No lower extremity edema, reproducible chest wall tenderness to palpation of the left chest wall GASTROINTESTINAL: Soft, active bowel sounds throughout, non-tender, non- distended, no palpable masses, no rebound or guarding. No hepatosplenomegaly MUSCULOSKELETAL: Extremities have no gross deformity, no edema, redness, or swelling. No calf swelling NEUROLOGIC:_a/o x 3, GCS 15, normal mentation and speech. Moves all extremities x 4 without motor or sensory deficit PSYCHIATRIC:_normal mood and affect, thought process is clear and linear Limitations: no limitations Course Vital Signs 10/28/24 10/28/24 10/28/24 22:08 22:19 22:20 Temperature 96.5 F L Pulse Rate 125 H Respiratory 40 H Rate Blood Pressure 159/113 O2 Sat by Pulse 98 Oximetry Fraction of 100 100 Inspired Oxygen (FIO2) 10/28/24 10/28/24 10/28/24 22:21 22:23 22:30 Temperature Pulse Rate 112 H 112 H 101 H Respiratory 29 H 29 H Rate Blood Pressure 168/93 125/77 O2 Sat by Pulse 100 96 Oximetry Fraction of Inspired Oxygen (FIO2) 10/28/24 10/28/24 10/28/24 22:33 22:37 22:50 Temperature Pulse Rate 115 H 110 H Respiratory Rate Blood Pressure O2 Sat by Pulse Oximetry Fraction of 50 Inspired Oxygen (FIO2) 10/28/24 10/28/24 10/29/24 23:15 23:30 00:01 Temperature 97.8 F Pulse Rate 108 H 115 H Respiratory 22 Rate Blood Pressure 141/83 O2 Sat by Pulse 99 Oximetry Fraction of Inspired Oxygen (FIO2) 10/29/24 10/29/24 10/29/24 00:26 02:00 03:58 Temperature Pulse Rate 107 H Respiratory 24 Rate Blood Pressure 157/85 O2 Sat by Pulse 97 96 Oximetry Fraction of 50 Inspired Oxygen (FIO2) 10/29/24 10/29/24 04:00 06:00 Temperature Pulse Rate 108 H 97 Respiratory 17 16 Rate Blood Pressure 161/95 116/79 O2 Sat by Pulse 95 95 Oximetry Fraction of Inspired Oxygen (FIO2) EKG Findings - EKG Comments: EKG Findings:: Sinus tachycardia, rate 118 beats minute, MA interval 136 ms, QRS duration 104 ms, QT/QTc 327/397 ms, normal axis, present in leads V1, V2 , however no ST elevations or depressions evident artifact present throughout,Comp ared to an EKG performed on 11/11/2019, no new ST elevations from prior, Q waves in V1 were present on prior EKG, do appear new in V2 but no ST elevation no new ST elevation here Medical Decision Making - Medical Decision Making Was pt. sent in by a medical professional or institution (EDGAR Patten, PROCUREMENT ASSISTANT, urgent care, hospital, or [facility]...) When possible be specific @ -No Did you speak to anyone other than the patient for history (EMS, parent, family, police, friend...)? What history was obtained from this source @ -No Did you review nursing and triage notes (agree or disagree)? Why? @ -I reviewed and agree with nursing and triage notes Were old charts reviewed (outside hosp., previous admission, EMS record, old EKG, old radiological studies, urgent care reports/EKG's, [facility] records)? Report findings @ Medical records reviewed Differential Diagnosis (chest pain, altered mental status, abdominal pain women, abdominal pain men, vaginal bleeding, weakness, fever, dyspnea, syncope, headache, dizziness, GI bleed, back pain, seizure, CVA, palpatations, mental health, musculoskeletal)? @Differential Dyspnea: Coronary syndrome, arrhythmia, tamponade, asthma, COPD, pulmonary embolism, pneumonia, pneumothorax, pulmonary effusion, anaphylaxis, diabetic ketoacidosis, flailed chest, pulmonary contusion, diaphragmatic rupture, anemia, neuromuscular, this is not meant to be an all-inclusive list. EKG interpreted by me (3pts min.). @ -As above X-rays interpreted by me (1pt min.). @ -No cardiomegaly, consolidations or pleural effusions CT interpreted by me (1pt min.). @ -No visible PE or consolidations U/S interpreted by me (1pt. min.). @ -None done What testing was considered but not performed or refused? (CT, X-rays, U/S, labs)? Why? @ -None What meds were considered but not given or refused? Why? @ -None Did you discuss the management of the patient with other professionals (professionals i.e. , PA, PROCUREMENT ASSISTANT, lab, RT, psych nurse, social scientist, field account director, teacher, geological technical officer, case investigator)? Give summary @ -No Was smoking cessation discussed for >3mins.? @ -No Was critical care preformed (if so, how long)? @Yes, 35 minutes Were there social determinants of health that impacted care today? How? (Homelessness, low income, unemployed, alcoholism, drug addiction, transportation, low edu. Level, literacy, decrease access to med. care, [facility], rehab)? @ -No Was there de-escalation of care discussed even if they declined (Discuss DNR or withdrawal of care, Hospice)? @ -No What co-morbidities impacted this encounter? (DM, HTN, Smoking, COPD, CAD, Cancer, CVA, ARF, Chemo, Hep., AIDS, mental health diagnosis, sleep apnea, morbid obesity)? @ -Prior CVA/TIA Was patient admitted / discharged? Hospital course, mention meds given and route, prescriptions, significant lab abnormalities, going to OR and other pertinent info. @ admission- Patient is a 53-year-old gentleman brought in by EMS for difficulty in breath ing, non-smoker, no diagnosis COPD though I suspect that the he has this underlying, prior CVA, history is limited as patient is on CPAP, states he has had 1 month of coughing nonproductive of sputum or hemoptysis. Ill-appearing, pale and tachypneic on arrival, EMS reported patient's pulse ox 70% on the arrival to their home, up to 89% with CPAP application. Patient received 1 sublingual nitroglycerin prior to arrival. On exam he has decreased breath sounds/air movement throughout the bilateral lungs, scant wheezes, otherwise no rales or rhonchi or crackles, no lower extremity edema. Patient is hypertensive on arrival. Adminsitered additional 2 SL nitroglycerin. Differential diagnoses above our top considerations include COPD exacerbation versus hypertensive emergency causing pulmonary edema, [id number] nebulizer treatments, steroids ordered, stabbing electrical send ordered. Comprehensive labs, imaging including D-dimer ordered. Patient already appearing improved on CPAP. Disc ussed with pt plan of care, agreeable with POC. On my reassessment status post DuoNebs. SL nitroglycerin and steroids patient appears much improved and much more comfortable. He endorses improvement of pain and shortness of breath. Will transition down to nasal cannula and continue to monitor. I discussed with patient plan for admission, he is agreeable plan of care. On review patient's labs significant for mild leukocytosis white blood cell 16.6, elevated neutrophils this could be secondary to steroid administration, ABG showed pH 7.32, pCO2 48, pO2 420, potassium 3.3 ordered replacement, initial troponin within normal limits, BNP former 31 CT PE study was ordered- CT PE study showed no PE bilateral pleural effusions and minimal pulmonary edema. Discussed with ABDULLAHI Banda, kindly accepts for admission. Pt admitted in stable condition. Of note, patient's repeat troponin 0.050 on repeat, I suspect type II IN secondary to demand from increased work of breathing and hypoxemia prior to arrival will obtain repeat, EKG did not show signs of STEMI. Undiagnosed new problem with uncertain prognosis? @ -No Drug Therapy requiring intensive monitoring for toxicity (Heparin, Nitro, Insulin, Cardizem)? @ -No Were any procedures done? @ -No Diagnosis/symptom? @ -COPD exacerbation Acute, or Chronic, or Acute on Chronic? @ acute Uncomplicated (without systemic symptoms) or Complicated (systemic symptoms)? @ -Complicated Side effects of treatment? @ -No Exacerbation, Progression, or Severe Exacerbation? @ -Exacerbation Poses a threat to life or bodily function? How? (Chest pain, USA, IN, pneumonia, PE, COPD, DKA, ARF, appy, cholecystitis, CVA, Diverticulitis, Homicidal, Suicid al, threat to staff... and all critical care pts) @ Yes - Lab Data Result diagrams: 10/28/24 22:19 10/28/24 22:19 Lab Results 10/28/24 10/28/24 10/28/24 Range/Units 22:19 22:19 22:19 WBC 16.6 H (3.8-10.6) k/uL RBC 5.36 (4.30-5.90) m/uL Hgb 15.6 (13.0-17.5) gm/dL Hct 48.3 (39.0-53.0) % MCV 90.1 (80.0-100.0) fL MCH 29.0 (25.0-35.0) pg MCHC 32.2 (31.0-37.0) g/dL RDW 12.8 (11.5-15.5) % Plt Count 305 (150-450) k/uL MPV 9.7 Neutrophils % (Manual) 59 % Lymphocytes % (Manual) 36 % Monocytes % (Manual) 4 % Eosinophils % (Manual) 1 % Neutrophils # (Manual) 9.79 H (1.3-7.7) k/uL Lymphocytes # (Manual) 5.98 H (1.0-4.8) k/uL Monocytes # (Manual) 0.66 (0-1.0) k/uL Eosinophils # (Manual) 0.17 (0-0.7) k/uL Nucleated RBCs 0 (0-0) /100 WBC Manual Slide Review Performed RBC Morphology Normal PT 10.8 (10.0-12.5) sec INR 1.0 (<1.2) APTT 20.1 L (22.0-30.0) sec D-Dimer 1.31 H (<0.60) mg/L FEU Sample Site ABG pH (7.35-7.45) ABG pCO2 (35-45) mmHg ABG pO2 (83-108) mmHg ABG HCO3 (21-25) mmol/L ABG Total CO2 (19-24) mmol/L ABG O2 Saturation (94-97) % ABG Base Excess mmol/L Kumar Test Hemoglobin (13.0-17.5) gm/dL FiO2 % Sodium 140 (137-145) mmol/L Potassium 3.3 L (3.5-5.1) mmol/L Chloride 108 H (98-107) mmol/L Carbon Dioxide 22 (22-30) mmol/L Anion Gap 10 mmol/L BUN 11 (9-20) mg/dL Creatinine 0.83 (0.66-1.25) mg/dL Est GFR (CKD-EPI)AfAm >90 (>60 ml/min/1.73 sqM) Est GFR (CKD-EPI)NonAf >90 (>60 ml/min/1.73 sqM) Glucose 135 H (74-99) mg/dL Calcium 8.1 L (8.4-10.2) mg/dL Magnesium 1.7 (1.6-2.3) mg/dL Total Bilirubin 0.4 (0.2-1.3) mg/dL AST 30 (17-59) U/L ALT 22 (4-49) U/L Alkaline Phosphatase 128 H (38-126) U/L Troponin I (0.000-0.034) ng/mL NT-Pro-B Natriuret Pep 431 pg/mL Total Protein 6.8 (6.3-8.2) g/dL Albumin 3.9 (3.5-5.0) g/dL 10/28/24 10/28/24 Range/Units 22:19 22:28 WBC (3.8-10.6) k/uL RBC (4.30-5.90) m/uL Hgb (13.0-17.5) gm/dL Hct (39.0-53.0) % MCV (80.0-100.0) fL MCH (25.0-35.0) pg MCHC (31.0-37.0) g/dL RDW (11.5-15.5) % Plt Count (150-450) k/uL MPV Neutrophils % (Manual) % Lymphocytes % (Manual) % Monocytes % (Manual) % Eosinophils % (Manual) % Neutrophils # (Manual) (1.3-7.7) k/uL Lymphocytes # (Manual) (1.0-4.8) k/uL Monocytes # (Manual) (0-1.0) k/uL Eosinophils # (Manual) (0-0.7) k/uL Nucleated RBCs (0-0) /100 WBC Manual Slide Review RBC Morphology PT (10.0-12.5) sec INR (<1.2) APTT (22.0-30.0) sec D-Dimer (<0.60) mg/L FEU Sample Site Right Radial ABG pH 7.32 L (7.35-7.45) ABG pCO2 48 H (35-45) mmHg ABG pO2 420 H (83-108) mmHg ABG HCO3 25 (21-25) mmol/L ABG Total CO2 26 H (19-24) mmol/L ABG O2 Saturation 100.0 H (94-97) % ABG Base Excess -2.2 mmol/L Kumar Test Yes Hemoglobin 15.4 (13.0-17.5) gm/dL FiO2 100 % Sodium (137-145) mmol/L Potassium (3.5-5.1) mmol/L Chloride (98-107) mmol/L Carbon Dioxide (22-30) mmol/L Anion Gap mmol/L BUN (9-20) mg/dL Creatinine (0.66-1.25) mg/dL Est GFR (CKD-EPI)AfAm (>60 ml/min/1.73 sqM) Est GFR (CKD-EPI)NonAf (>60 ml/min/1.73 sqM) Glucose (74-99) mg/dL Calcium (8.4-10.2) mg/dL Magnesium (1.6-2.3) mg/dL Total Bilirubin (0.2-1.3) mg/dL AST (17-59) U/L ALT (4-49) U/L Alkaline Phosphatase (38-126) U/L Troponin I <0.012 (0.000-0.034) ng/mL NT-Pro-B Natriuret Pep pg/mL Total Protein (6.3-8.2) g/dL Albumin (3.5-5.0) g/dL Disposition Clinical Impression: COPD exacerbation Disposition: ADMITTED IP TO THIS HOSP Condition: Good
[2024-10-28] MEDS: IPRATROPIUM 0.5 MG/2.5 ML NEBU INHALATION STA (22:22)
[2024-10-28] MEDS: IPRATROPIUM-ALBUTEROL 3 ML NEB INHALATION STA (22:22)
[2024-10-28] MEDS: ALBUTEROL NEBULIZED 2.5 MG/3 ML INHALATION STA (22:22)
[2024-10-28] MEDS: ALBUTEROL NEBULIZED 2.5 MG/3 ML INHALATION SCH (22:22)
[2024-10-28] MEDS: SODIUM CHLORIDE 0.9% 500 ML 500 ML IV STA (22:28)
[2024-10-28 22:31] LABS: ABG Base Excess -2.2 mmol/L; ABG HCO3 25 mmol/L (21-25); ABG PCO2 48 mmHg (35-45); ABG PH 7.32 (7.35-7.45); ABG TCO2 26 mmol/L (19-24); Allen Test Performed? Yes
[2024-10-28 22:36] LABS: ABG PO2 420 mmHg (83-108)
[2024-10-28 22:38] LABS: HCT 48.3 % (39.0-53.0); HGB 15.6 gm/dL (13.0-17.5); MCHC 32.2 g/dL (31.0-37.0); MCV 90.1 fL (80.0-100.0); Mean Platelet Volume 9.7; Platelet Count 305 k/uL (150-450); RBC 5.36 m/uL (4.30-5.90); RDW 12.8 % (11.5-15.5); WBC 16.6 k/uL (3.8-10.6)
[2024-10-28 23:12] LABS: Partial Thromboplastin Time 20.1 sec (22.0-30.0); Prothrombin Time 10.8 sec (10.0-12.5)
[2024-10-28 23:14] LABS: ALT 22 U/L (4-49); AST 30 U/L (17-59); African American GFR (CKD) >90 (>60 ml/min/1.73 sqM); Albumin 3.9 g/dL (3.5-5.0); Alkaline Phosphatase 128 U/L (38-126); Anion Gap 10 mmol/L; Blood Urea Nitrogen 11 mg/dL (9-20); Calcium 8.1 mg/dL (8.4-10.2); Carbon Dioxide 22 mmol/L (22-30); Chloride 108 mmol/L (98-107); Glucose 135 mg/dL (74-99); Magnesium 1.7 mg/dL (1.6-2.3); Non-African American GFR(CKD) >90 (>60 ml/min/1.73 sqM); Potassium 3.3 mmol/L (3.5-5.1); Sodium 140 mmol/L (137-145); Total Bilirubin 0.4 mg/dL (0.2-1.3); Total Protein 6.8 g/dL (6.3-8.2)
[2024-10-28 23:22] LABS: NT-Pro-B-Type Natriuretic Pept 431 pg/mL
[2024-10-28] MEDS: AZITHROMYCIN 500 MG in SODIUM CHLORIDE 0.9% 250 ML IVPB STA (23:27)
[2024-10-29 00:20] LABS: Eosinophils # (M) 0.17 k/uL (0-0.7); Lymphocytes # (M) 5.98 k/uL (1.0-4.8); Monocytes # (M) 0.66 k/uL (0-1.0); Neutrophils # (M) 9.79 k/uL (1.3-7.7); Neutrophils % (M) 59 %; Nucleated Red Blood Cells 0 /100 WBC (0-0); RBC Morphology Normal; Total Cells Counted 100
--- NOTE | 2024-10-29 00:39 | CT ---
EXAM: CT Angiography Chest With Intravenous Contrast CLINICAL HISTORY: concern for PE TECHNIQUE: Axial computed tomographic angiography images of the chest with intravenous contrast. CTDI is 10.3 mGy and DLP is 405.5 mGy-cm. This CT exam was performed using one or more of the following dose reduction techniques: automated exposure control, adjustment of the mA and/or kV according to patient size, and/or use of iterative reconstruction technique. MIP reconstructed images were created and reviewed. Coronal and sagittal reformatted images were created and reviewed. COMPARISON: No relevant prior studies available. FINDINGS: Pulmonary arteries: Unremarkable. No pulmonary embolism. Aorta: No acute findings. No thoracic aortic aneurysm. Lungs: Subtle septal thickening and patchy ground-glass opacities with upper lung zone predominance suggest minimal pulmonary edema. Pleural space: Trace of bilateral pleural effusion with compressive atelectasis. No pneumothorax. Heart: Unremarkable. No cardiomegaly. No significant pericardial effusion. No evidence of RV dysfunction. Bones/joints: Moderate degenerative changes. Soft tissues: Unremarkable. Lymph nodes: Unremarkable. No enlarged lymph nodes. Liver: Suspect fatty infiltration of the liver. IMPRESSION: 1. No pulmonary embolism. No thoracic aorta aneurysm or dissection. 2. Trace of bilateral pleural effusion with compressive atelectasis. 3. Minimal pulmonary edema.
[2024-10-29] MEDS ORDERED: NALOXONE 0.4 MG/ML 1 ML VIAL IVP PRN ×2 (02:08→09:24)
[2024-10-29] MEDS ORDERED: IPRATROPIUM-ALBUTEROL 3 ML NEB INHALATION PRN (02:10)
[2024-10-29] MEDS ORDERED: BENZONATATE 100 MG CAP PO PRN (02:10)
[2024-10-29] MEDS ORDERED: ONDANSETRON 4 MG/2 ML VIAL IVP PRN (02:10)
[2024-10-29] MEDS ORDERED: HYDROcodone/APAP 5-325MG 1 EACH TAB PO PRN (02:10)
[2024-10-29] MEDS: POTASSIUM BICARBONATE/CIT AC 20 MEQ TABLET.EFF PO ONE (03:59)
[2024-10-29] MEDS: SYMBICORT 160-4.5 MCG INHALER INHALATION SCH (08:46)
[2024-10-29] MEDS: NICOTINE 21MG/24HR PATCH TRANSDERM SCH (09:45)
[2024-10-29] MEDS: guaiFENesin 600 MG TABLET.ER PO SCH (09:46)
[2024-10-29] MEDS: ENOXAPARIN 40 MG/0.4 ML SYRINGE SQ SCH (09:46)
[2024-10-29] MEDS: predniSONE 20 MG TAB PO SCH (10:37)
--- NOTE | 2024-10-29 10:42 | XR ---
EXAMINATION TYPE: XR chest 1V portable DATE OF EXAM: 10/28/2024 10:24 PM COMPARISON: Chest radiographs from 11/12/2019 CLINICAL INDICATION: Male, 53 years old with history of MG, suspect CPOD vs CHF; [facility] TECHNIQUE: XR chest 1V portable Frontal view of the chest. FINDINGS: Lungs/Pleura: Scattered subtle reticular and hazy opacities. No evidence of pneumothorax, focal conso lidation or pleural effusion. Pulmonary vascularity: Unremarkable. Heart/mediastinum: Cardiomediastinal silhouette is unremarkable. Musculoskeletal: No acute osseous pathology. IMPRESSION: Subtle scattered opacities which may represent an atypical pneumonia. Correlate for covid 19. [facility], , 10/29/2024 10:40 AM
--- NOTE | 2024-10-29 11:44 | P.CRDCN ---
History of Present Illness Consult date: 10/29/24 History of present illness: History of Present Illness: The patient is a 53-year-old male with known history of chronic tobacco use, does not follow with a physician who presented with progressive dyspnea going on for the last few weeks, worse on presentation with cough and wheezing. He has chest discomfort with coughing. He is limited in his physical activity. He has occasional palpitations but no PND, orthopnea or peripheral edema. He has no prior history of documented CAD or CHF. He smokes about a pack and a half a day. He has a history of stroke and he is on aspirin. He has a history of hyperlipidemia on no medication. On presentation he was in sinus mechanism,His EKG showed nonspecific ST-T wave changes. His CT scan of the chest showed no evidence of pulmonary embolism. His chest x-ray raised the possibility of atypical pneumonia. His initial troponin was normal and subsequent 1 were 0.050, 0.045. Medications: Aspirin Review of Systems: Respiratory: He has a history of chronic dyspnea exertion, cough and wheezing GI: No nausea or vomiting . No history of peptic ulcer disease. No recent GI bleed. : He had a recent history of hematuria Nervous System: He has a history of stroke Physical Examination: 53-year-old male, alert oriented, appears older than stated age,Blood pressure 157/85, Heart rate 107 Head: Normocephalic. Eyes: Sclerae nonicteric. Neck: Good carotid upstroke, no bruit, no jugular venous distention. Lungs: Decreased breath sounds bilaterally with scattered rhonchi Heart: Regular rate and rhythm, S1-S2, no S3, no rub. No murmur. Abdomen: Soft nontender, positive bowel sounds no organomegaly. Extremities: No edema, intact distal pulses. Labs: Troponin 0.050, 0.045. WBC 16.6, hemoglobin 15.6. pH 7.32. Potassium 3.3. BUN of 11 creatinine 0.83. NT proBNP 431. EKG: Sinus mechanism with nonspecific ST-T wave changes Impression: 1. Progressive dyspnea, exacerbation of COPD 2. Troponin elevation most likely type II event 3. Chronic tobacco use 4. History of stroke 5. History of hyperlipidemia Plan: 1. Add aspirin, beta-jhony and statin 2. Obtain an echocardiogram with Doppler 3. Repeat EKG tomorrow 4. Follow renal functions 5. Patient would require cardiac evaluation down the road for ischemia once stable from the lung standpoint. Thank you for this consult we will follow with you. Past Medical History Past Medical History: CVA/TIA History of Any Multi-Drug Resistant Organisms: None Reported Past Surgical History: No Surgical Hx Reported Additional Past Surgical History / Comment(s): Broke his left arm as a child. Broken nose and procedure to fix. Additional Past Anesthesia/Blood Transfusion Reaction / Comment(s): No previous blood transfusions. Past Psychological History: No Psychological Hx Reported Smoking Status: Current every day smoker Past Alcohol Use History: None Reported Past Drug Use History: None Reported - Past Family History Father Additional Family Medical History / Comment(s): Dad passed of heart disease at age 56. Had early onset Alzheimers. Mother History Unknown: Yes Additional Family Medical History / Comment(s): No known history, still living. Medications and Allergies Home Medications Medication Instructions Recorded Confirmed Type Aspirin [Adult Low Dose Aspirin EC] 81 mg PO DAILY #30 tablet. 11/14/19 10/29/24 Rx Allergies Allergy/AdvReac Type Severity Reaction Status Date / Time latex Allergy Rash/Hives Verified 10/29/24 08:23 nut - unspecified Allergy Anaphylaxis Verified 10/29/24 08:23 Physical Exam Vitals: Vital Signs Temp Pulse Resp BP Pulse Ox FiO2 10/29/24 09:45 102 H 20 143/96 96 10/29/24 06:00 97 16 116/79 95 10/29/24 04:00 108 H 17 161/95 95 10/29/24 03:58 50 10/29/24 02:00 107 H 24 157/85 96 10/29/24 00:26 97 10/29/24 00:01 97.8 F 10/28/24 23:30 115 H 10/28/24 23:15 108 H 22 141/83 99 10/28/24 22:50 110 H 10/28/24 22:37 50 10/28/24 22:33 115 H 10/28/24 22:30 101 H 29 H 125/77 96 10/28/24 22:23 112 H 10/28/24 22:21 112 H 29 H 168/93 100 10/28/24 22:20 100 10/28/24 22:19 100 10/28/24 22:08 96.5 F L 125 H 40 H 159/113 98 Intake and Output 10/28/24 10/29/24 10/29/24 22:59 06:59 14:59 Other: Weight 81.647 kg Results 10/28/24 22:19 10/28/24 22:19 Cardiac Enzymes 10/28/24 10/28/24 10/29/24 Range/Units 22:19 22:19 04:00 AST 30 (17-59) U/L Troponin I <0.012 0.050 H* (0.000-0.034) ng/mL 10/29/24 Range/Units 07:15 AST (17-59) U/L Troponin I 0.045 H* (0.000-0.034) ng/mL Coagulation 10/28/24 Range/Units 22:19 PT 10.8 (10.0-12.5) sec APTT 20.1 L (22.0-30.0) sec CBC 10/28/24 Range/Units 22:19 WBC 16.6 H (3.8-10.6) k/uL RBC 5.36 (4.30-5.90) m/uL Hgb 15.6 (13.0-17.5) gm/dL Hct 48.3 (39.0-53.0) % Plt Count 305 (150-450) k/uL Comprehensive Metabolic Panel 10/28/24 Range/Units 22:19 Sodium 140 (137-145) mmol/L Potassium 3.3 L (3.5-5.1) mmol/L Chloride 108 H (98-107) mmol/L Carbon Dioxide 22 (22-30) mmol/L BUN 11 (9-20) mg/dL Creatinine 0.83 (0.66-1.25) mg/dL Glucose 135 H (74-99) mg/dL Calcium 8.1 L (8.4-10.2) mg/dL AST 30 (17-59) U/L ALT 22 (4-49) U/L Alkaline Phosphatase 128 H (38-126) U/L Total Protein 6.8 (6.3-8.2) g/dL Albumin 3.9 (3.5-5.0) g/dL Current Medications Generic Name Dose Route Start Last Admin Trade Name Freq PRN Reason Stop Dose Admin Acetaminophen 650 mg 10/29/24 02:10 Acetaminophen Tab 325 Mg Tab PO Q6HR PRN Mild Pain or Fever > 100.5 Hydrocodone Bitart/Acetaminophen 1 each 10/29/24 02:10 Hydrocodone/Apap 5-325mg 1 Each Tab PO Q6HR PRN Moderate to Severe Pain (4-10) Albuterol/Ipratropium 3 ml 10/29/24 02:10 Ipratropium-Albuterol 3 Ml Neb INHALATION RT-Q2H PRN Shortness Of Breath Or Wheezing Azithromycin 500 mg 10/29/24 21:00 Azithromycin 500 Mg Tab PO 10/30/24 21:01 HS ASHLEY Protocol Benzonatate 100 mg 10/29/24 02:10 Benzonatate 100 Mg Cap PO TID PRN Cough Budesonide/Formoterol Fumarate 2 puff 10/29/24 08:00 10/29/24 08:46 Symbicort 160-4.5 Mcg Inhaler INHALATION 2 puff RT-BID ASHLEY Administration Enoxaparin Sodium 40 mg 10/29/24 09:00 10/29/24 09:46 Enoxaparin 40 Mg/0.4 Ml Syringe SQ 40 mg DAILY ASHLEY Administration Guaifenesin 600 mg 10/29/24 09:00 10/29/24 09:46 Guaifenesin 600 Mg Tablet.Er PO 600 mg Q12HR ASHLEY Administration Methylprednisolone Sodium Succinate 60 mg 10/29/24 12:00 Methylprednisolone Sod Succi 125 Mg/2 Ml Vial IV Q6HR ASHLEY Naloxone HCl 0.2 mg 10/29/24 02:08 Naloxone 0.4 Mg/Ml 1 Ml Vial IVP Q2M PRN Opioid Reversal Nicotine 1 patch 10/29/24 09:00 10/29/24 09:45 Nicotine 21mg/24hr Patch TRANSDERM 1 patch DAILY ASHLEY Administration Ondansetron HCl 4 mg 10/29/24 02:10 Ondansetron 4 Mg/2 Ml Vial IVP Q6HR PRN Nausea And Vomiting Intake and Output 10/28/24 10/29/24 10/29/24 22:59 06:59 14:59 Other: Weight 81.647 kg 10/28/24 22:19 10/28/24 22:19
--- NOTE | 2024-10-29 13:08 | P.HPIM ---
History of Present Illness H&P Date: 10/29/24 History of present illness; patient is a 53-year-old gentleman with past medical history significant for CVA, tobacco addiction presented to the ER because of shortness of breath and cough. Patient said he was all right 1 month back when he started noticing cough which was nonproductive, intermittent associated with shortness of breath. There was complaint of left-sided chest pain, intermittent, aggravated with taking deep breaths.. There is no complaint of hemoptysis. Shortness of breath was present on exertion. There was no complaint of fever or chills. No complaint of orthopnea or PND. Because of this shortness of breath and cough, patient brought to the ER Initial lab work done in the ER showed WB 16.6, hemoglobin 15.6, platelet count 305, D-dimer 1.31, sodium 140, potassium 3.3, BUN 11, creatinine 0.83, glucose 135, troponin 0.012 proBNP 431, EKG done in the ER showed heart rate of118 , no ST segment elevation or depression seen, no T-wave inversions seen. Chest x-ray done in the ER showed no acute pulmonary process CT chest PE protocol done showed no PE, trace of bilateral pleural effusion Patient admitted to internal medicine service REVIEW OF SYSTEMS: CONSTITUTIONAL: No fever, no malaise, no fatigue. HEENT: No recent visual problems or hearing problems. Denied any sore throat. CARDIOVASCULAR: As mentioned above PULMONARY: As mentioned above GASTROINTESTINAL: No diarrhea, no nausea, no vomiting, no abdominal pain. NEUROLOGICAL: No headaches, no weakness, no numbness. HEMATOLOGICAL: Denies any bleeding or petechiae. GENITOURINARY: Denies any burning micturition, frequency, or urgency. MUSCULOSKELETAL/RHEUMATOLOGICAL: Denies any joint pain, swelling, or any muscle pain. ENDOCRINE: Denies any polyuria or polydipsia. The rest of the 14-point review of systems is negative. PHYSICAL EXAMINATION: GENERAL: The patient is alert and oriented x3 ill looking. HEENT: Pupils are round and equally reacting to light. EOMI. No scleral icterus. No conjunctival pallor. Normocephalic, atraumatic. No pharyngeal erythema. No thyromegaly. CARDIOVASCULAR: S1 and S2 present. No murmurs, rubs, or gallops. PULMONARY: Coarse breath sound bilaterally, no wheezing or crackles. ABDOMEN: Soft, nontender, nondistended, normoactive bowel sounds. No palpable or ganomegaly. MUSCULOSKELETAL: No joint swelling or deformity. EXTREMITIES: No cyanosis, clubbing, or pedal edema. NEUROLOGICAL: Gross neurological examination did not reveal any focal deficits. SKIN: No rashes. Assessment and plan Acute hypoxemic respiratory failure Acute COPD exacerbation History of CVA Tobacco addiction Monitor vital signs Monitor CBC Monitor CMP Continue telemetry monitoring Trend troponin Ordered prednisone Ordered breathing treatment Ordered azithromycin Ordered proBNP Ordered 2D echo Counseled patient to regarding need for tobacco cessation Consult pulmonary Labs and medication were reviewed.. Continue same treatment. Continue with symptomatic treatment. Resume home medication. Monitor labs and vitals. DVT and GI prophylaxis. Further recommendations as per clinical course of the patient Dictation was produced using [employer] dictation software. please excuse any grammatical, word or spelling errors. Past Medical History Past Medical History: CVA/TIA History of Any Multi-Drug Resistant Organisms: None Reported Past Surgical History: No Surgical Hx Reported Additional Past Surgical History / Comment(s): Broke his left arm as a child. Br oken nose and procedure to fix. Additional Past Anesthesia/Blood Transfusion Reaction / Comment(s): No previous blood transfusions. Past Psychological History: No Psychological Hx Reported Smoking Status: Current every day smoker Past Alcohol Use History: None Reported Past Drug Use History: None Reported - Past Family History Father Additional Family Medical History / Comment(s): Dad passed of heart disease at age 56. Had early onset Alzheimers. Mother History Unknown: Yes Additional Family Medical History / Comment(s): No known history, still living. Medications and Allergies Home Medications Medication Instructions Recorded Confirmed Type Aspirin [Adult Low Dose Aspirin EC] 81 mg PO DAILY #30 tablet. 11/14/19 10/29/24 Rx Allergies Allergy/AdvReac Type Severity Reaction Status Date / Time latex Allergy Rash/Hives Verified 10/29/24 08:23 nut - unspecified Allergy Anaphylaxis Verified 10/29/24 08:23 Physical Exam Vitals: Vital Signs Temp Pulse Resp BP Pulse Ox FiO2 10/29/24 06:00 97 16 116/79 95 10/29/24 04:00 108 H 17 161/95 95 10/29/24 03:58 50 10/29/24 02:00 107 H 24 157/85 96 10/29/24 00:26 97 12/01/24 00:01 97.8 F 10/28/24 23:30 115 H 10/28/24 23:15 108 H 22 141/83 99 10/28/24 22:50 110 H 10/28/24 22:37 50 10/28/24 22:33 115 H 10/28/24 22:30 101 H 29 H 125/77 96 10/28/24 22:23 112 H 10/28/24 22:21 112 H 29 H 168/93 100 10/28/24 22:20 100 10/28/24 22:19 100 10/28/24 22:08 96.5 F L 125 H 40 H 159/113 98 Intake and Output 10/28/24 10/29/24 10/29/24 22:59 06:59 14:59 Other: Weight 81.647 kg Results CBC & Chem 7: 10/28/24 22:19 10/28/24 22:19 Labs: Abnormal Lab Results - Last 24 Hours (Table) 10/28/24 10/28/24 10/28/24 Range/Units 22:19 22:19 22:19 WBC 16.6 H (3.8-10.6) k/uL Neutrophils # (Manual) 9.79 H (1.3-7.7) k/uL Lymphocytes # (Manual) 5.98 H (1.0-4.8) k/uL APTT 20.1 L (22.0-30.0) sec D-Dimer 1.31 H (<0.60) mg/L FEU ABG pH (7.35-7.45) ABG pCO2 (35-45) mmHg ABG pO2 (83-108) mmHg ABG Total CO2 (19-24) mmol/L ABG O2 Saturation (94-97) % Potassium 3.3 L (3.5-5.1) mmol/L Chloride 108 H (98-107) mmol/L Glucose 135 H (74-99) mg/dL Calcium 8.1 L (8.4-10.2) mg/dL Alkaline Phosphatase 128 H (38-126) U/L Troponin I (0.000-0.034) ng/mL 10/28/24 10/29/24 10/29/24 Range/Units 22:28 04:00 07:15 WBC (3.8-10.6) k/uL Neutrophils # (Manual) (1.3-7.7) k/uL Lymphocytes # (Manual) (1.0-4.8) k/uL APTT (22.0-30.0) sec D-Dimer (<0.60) mg/L FEU ABG pH 7.32 L (7.35-7.45) ABG pCO2 48 H (35-45) mmHg ABG pO2 420 H (83-108) mmHg ABG Total CO2 26 H (19-24) mmol/L ABG O2 Saturation 100.0 H (94-97) % Potassium (3.5-5.1) mmol/L Chloride (98-107) mmol/L Glucose (74-99) mg/dL Calcium (8.4-10.2) mg/dL Alkaline Phosphatase (38-126) U/L Troponin I 0.050 H* 0.045 H* (0.000-0.034) ng/mL
[2024-10-29] MEDS: methylPREDNISolone SOD SUCCI 125 MG/2 ML VIAL IV SCH (13:11)
[2024-10-29] MEDS: METOPROLOL TARTRATE 25 MG TAB PO SCH (13:11)
[2024-10-29] MEDS: ATORVASTATIN 40 MG TAB PO SCH (13:11)
[2024-10-29] MEDS: ASPIRIN 81 MG PO SCH (13:11)
--- NOTE | 2024-10-29 13:54 | P.CNPUL ---
History of Present Illness Consult date: 10/29/24 Reason for consult: dyspnea, COPD History of present illness: This is a 53-year-old male patient, came into the Emergency Department because of increased shortness of breath he is a chronic smoker he smokes around 1.5 packs of cigarettes on a daily basis. He had increased cough and congestion along with worsening shortness of breath. No chest pain. No previous history of coronary artery disease or congestive heart failure. Does not utilize any form of respiratory medications as maintenance. In the emergency department, the patient had a white cell count of 16 with a hemoglobin of 7.6 and a platelet count of 305. Normal coagulation profile. D-dimer was at the 1.3. He did have a component of hypercapnic respiratory failure with a pH of 7.32 with a pCO2 of 48 and pO2 of 420. The patient was initially placed on BiPAP and the patient is currently on 5 L of oxygen by nasal cannula with a pulse ox of 97%. Electrolytes are normal. Potassium level is at 3.3 that is to be replaced. Troponins are minimally elevated at 0.010.05 and 0.04 respectively. proBNP level was 1260. BUN 11 with a creatinine of 0.8. Glucose 135. Calcium is at 8.1. The patient underwent a CTA of the chest in the emergency department on 10/29/2024 and the patient was found to have no evidence of any pulm embolism or aortic dissection. Trace bilateral pleural effusion and compressive atelectasis and some mild interstitial edema was present. Similar findings were also noted on the chest x-ray that showed some subtle scattered opacities and interstitial markings. The patient is currently on DuoNeb nebulized treatments [id number]. The patient will be started on IV Solu-Medrol 60 mg every 6 hours. Empiric antibiotic coverage with Zithromax. The patient will have an echocardiogram. Cardiology is to follow on the case and is on Lovenox for DVT prophylaxis. Review of Systems Constitutional: Reports fatigue, Reports weakness Eyes: denies as per HPI, denies blurred vision, denies bulging eye, denies decreased vision, denies diplopia, denies discharge, denies dry eye, denies irritation, denies itching, denies pain, denies photophobia, denies loss of peripheral vision, denies loss of vision, denies tunnel vision/blind spots Ears: deny: decreased hearing, ear discharge, earache, tinnitus Ears, nose, mouth and throat: Reports as per HPI Breasts: absent: as per HPI, gynecomastia Cardiovascular: Reports decreased exercise tolerance, Reports dyspnea on exertion Respiratory: Reports congestion, Reports dyspnea, Reports wheezing Genitourinary: Reports as per HPI Musculoskeletal: Reports as per HPI Musculoskeletal: absent: ankle pain, ankle stiffness, ankle swelling, as per HPI, elbow pain, elbow stiffness, elbow swelling, foot pain, foot stiffness, foot swelling, hand pain, hand stiffness, hand swelling, hip pain, hip stiffness, hip swelling, knee pain, knee stiffness, knee swelling, shoulder pain, shoulder stiffness, shoulder swelling, wrist pain, wrist stiffness, wrist swelling Integumentary: Reports as per HPI Neurological: Reports as per HPI Psychiatric: Reports as per HPI Endocrine: Reports as per HPI Hematologic/Lymphatic: Reports as per HPI Allergic/Immunologic: Reports as per HPI Past Medical History Past Medical History: CVA/TIA History of Any Multi-Drug Resistant Organisms: None Reported Past Surgical History: No Surgical Hx Reported Additional Past Surgical History / Comment(s): Broke his left arm as a child. Broken nose and procedure to fix. Additional Past Anesthesia/Blood Transfusion Reaction / Comment(s): No previous blood transfusions. Past Psychological History: No Psychological Hx Reported Smoking Status: Current every day smoker Past Alcohol Use History: None Reported Past Drug Use History: None Reported - Past Family History Father Additional Family Medical History / Comment(s): Dad passed of heart disease at age 56. Had early onset Alzheimers. Mother History Unknown: Yes Additional Family Medical History / Comment(s): No known history, still living. Medications and Allergies Home Medications Medication Instructions Recorded Confirmed Type Aspirin [Adult Low Dose Aspirin EC] 81 mg PO DAILY #30 tablet. 11/14/19 10/29/24 Rx Allergies Allergy/AdvReac Type Severity Reaction Status Date / Time latex Allergy Rash/Hives Verified 10/29/24 08:23 nut - unspecified Allergy Anaphylaxis Verified 10/29/24 08:23 Physical Exam Vitals: Vital Signs Temp Pulse Resp BP Pulse Ox FiO2 10/29/24 06:00 97 16 116/79 95 10/29/24 04:00 108 H 17 161/95 95 10/29/24 03:58 50 10/29/24 02:00 107 H 24 157/85 96 10/29/24 00:26 97 10/29/24 00:01 97.8 F 10/28/24 23:30 115 H 10/28/24 23:15 108 H 22 141/83 99 10/28/24 22:50 110 H 10/28/24 22:37 50 10/28/24 22:33 115 H 10/28/24 22:30 101 H 29 H 125/77 96 10/28/24 22:23 112 H 10/28/24 22:21 112 H 29 H 168/93 100 10/28/24 22:20 100 10/28/24 22:19 100 10/28/24 22:08 96.5 F L 125 H 40 H 159/113 98 Intake and Output 10/28/24 10/29/24 10/29/24 22:59 06:59 14:59 Other: Weight 81.647 kg The patient appeared well nourished and normally developed. Vital signs as documented. Patient is currently on 5 L O2 nasal cannula Head exam is unremarkable. No scleral icterus or corneal arcus noted. Neck is without jugular venous distension, thyromegaly, or carotid bruits. Carotid upstrokes are brisk bilaterally. Lungs are diminished breath sounds bilaterally along with scattered rhonchi scattered expiratory wheezes and prolongation of the exhalation phase of breathing Cardiac exam reveals the PMI to be normally sized and situated. Rhythm is regular. First and second heart sounds normal. No murmurs, rubs or gallops. Abdominal exam reveals normal bowel sounds, no masses, no organomegaly and no aortic enlargement. Extremities are nonedematous and both femoral and pedal pulses are normal. Examination of the skin revealed no evidence of significant rashes, suspicious appearing nevi or other concerning lesions. Neurologically, the patient is awake and alert and the patient does not have any focal neurological deficit. Cranial nerves are essentially intact. Results - Laboratory Findings CBC and BMP: 10/28/24 22:19 10/28/24 22:19 ABG ABG pH 7.32 (7.35-7.45) L 10/28/24 22:28 ABG pCO2 48 mmHg (35-45) H 10/28/24 22:28 ABG pO2 420 mmHg (83-108) H 10/28/24 22:28 ABG O2 Saturation 100.0 % (94-97) H 10/28/24 22:28 PT/INR, D-dimer PT 10.8 sec (10.0-12.5) 10/28/24 22:19 INR 1.0 (<1.2) 10/28/24 22:19 D-Dimer 1.31 mg/L FEU (<0.60) H 10/28/24 22:19 Abnormal lab findings: Abnormal Labs 10/28/24 10/28/24 10/28/24 22:19 22:19 22:19 WBC 16.6 H Neutrophils # (Manual) 9.79 H Lymphocytes # (Manual) 5.98 H APTT 20.1 L D-Dimer 1.31 H ABG pH ABG pCO2 ABG pO2 ABG Total CO2 ABG O2 Saturation Potassium 3.3 L Chloride 108 H Glucose 135 H Calcium 8.1 L Alkaline Phosphatase 128 H Troponin I 10/28/24 10/29/24 10/29/24 22:28 04:00 07:15 WBC Neutrophils # (Manual) Lymphocytes # (Manual) APTT D-Dimer ABG pH 7.32 L ABG pCO2 48 H ABG pO2 420 H ABG Total CO2 26 H ABG O2 Saturation 100.0 H Potassium Chloride Glucose Calcium Alkaline Phosphatase Troponin I 0.050 H* 0.045 H* - Diagnostic Findings Chest x-ray: image reviewed Assessment and Plan Plan: Acute hypoxic/hypercapnic respiratory failure likely on the basis of COPD exacerbation. There could be potentially a component of CHF as the patient's proBNP level is elevated and the patient has a increased interstitial markings bilaterally. A viral screen is to be done to rule out any underlying acute viral infection. COPD Chronic smoker Shortness of breath secondary to above Abnormal troponins, rule out type II ischemia. Rule out underlying coronary artery disease. Chronic smoker History of CVA Mild leukocytosis Plan Will check viral screen/[facility] Continue DuoNeb updrafts Continue IV Solu-Medrol Continue Zithromax as an empiric antibiotic coverage Echocardiogram Cardiology follow-up Smoking cessation Will continue to follow make further recommendations based on his progress.
[2024-10-29 16:27] LABS: Glucose,Whole Blood 151 mg/dL (70-110)
[2024-10-29] MEDS ORDERED: DEXTROSE 50% SYRINGE 50 ML IVP PRN ×2 (16:27)
[2024-10-29] MEDS: INSULIN ASPART (NovoLOG) 100 UNIT/ML VIAL SQ SCH (17:58)
[2024-10-29 20:30] LABS: Glucose,Whole Blood 141 mg/dL (70-110)
[2024-10-29] MEDS: AZITHROMYCIN 500 MG TAB PO SCH (20:58)
[2024-10-29 22:51] LABS: LDL Cholesterol,Calculated 144.2 mg/dL (0.0-131.0)
[2024-10-30 06:18] LABS: Glucose,Whole Blood 175 mg/dL (70-110)
[2024-10-30 06:24] LABS: Basophils % (A) 0 %; Eosinophils % (A) 0 %; HCT 45.8 % (39.0-53.0); HGB 14.7 gm/dL (13.0-17.5); Hypochromasia Slight; Lymphocytes # (A) 1.8 k/uL (1.0-4.8); Lymphocytes % (A) 9 %; MCV 90.4 fL (80.0-100.0); Mean Platelet Volume 10.1; Monocytes # (A) 0.4 k/uL (0-1.0); Monocytes % (A) 2 %; Neutrophils # (A) 16.5 k/uL (1.3-7.7); Neutrophils % (A) 88 %; Platelet Count 267 k/uL (150-450); RBC 5.07 m/uL (4.30-5.90); RDW 13.1 % (11.5-15.5); WBC 18.7 k/uL (3.8-10.6)
[2024-10-30 06:41] LABS: AST 28 U/L (17-59); African American GFR (CKD) >90 (>60 ml/min/1.73 sqM); Albumin 3.8 g/dL (3.5-5.0); Alkaline Phosphatase 104 U/L (38-126); Anion Gap 8 mmol/L; Blood Urea Nitrogen 17 mg/dL (9-20); Calcium 9.2 mg/dL (8.4-10.2); Carbon Dioxide 20 mmol/L (22-30); Chloride 107 mmol/L (98-107); Glucose 171 mg/dL (74-99); Non-African American GFR(CKD) >90 (>60 ml/min/1.73 sqM); Potassium 4.2 mmol/L (3.5-5.1); Sodium 135 mmol/L (137-145); Total Protein 6.6 g/dL (6.3-8.2)
[2024-10-30 06:48] LABS: ALT 35 U/L (4-49)
[2024-10-30] MEDS: ACETAMINOPHEN TAB 325 MG TAB PO PRN (08:25)
[2024-10-30 08:31] VITALS: RESP 14
[2024-10-30 10:25] LABS: Chol/HDL Ratio 5.84 Ratio; LDL Cholesterol,Calculated 153.9 mg/dL (0.0-131.0)
--- NOTE | 2024-10-30 10:47 | P.PN ---
Subjective Progress Note Date: 10/30/24 History of Present Illness: The patient is a 53-year-old male with known history of chronic tobacco use, d oes not follow with a physician who presented with progressive dyspnea going on for the last few weeks, worse on presentation with cough and wheezing. He has chest discomfort with coughing. He is limited in his physical activity. He has occasional palpitations but no PND, orthopnea or peripheral edema. He has no prior history of documented CAD or CHF. He smokes about a pack and a half a day. He has a history of stroke and he is on aspirin. He has a history of hyperlipidemia on no medication. On presentation he was in sinus mechanism,His EKG showed nonspecific ST-T wave changes. His CT scan of the chest showed no evidence of pulmonary embolism. His chest x-ray raised the possibility of atypical pneumonia. His initial troponin was normal and subsequent 1 were 0.050, 0.045. Medications: Aspirin Labs: Troponin 0.050, 0.045. WBC 16.6, hemoglobin 15.6. pH 7.32. Potassium 3.3. BUN of 11 creatinine 0.83. NT proBNP 431. EKG: Sinus mechanism with nonspecific ST-T wave changes 10/30/2024 Patient is seen and examined. Breathing status is improving. He is receiving high-dose IV steroids and nebulizers, inhalers for COPD exacerbation. He denies any complaints of chest pain. Blood pressure 127/70, heart rate 97, pulse ox 96% on room air. Repeat blood work reveals WBC 18.7, hemoglobin 14, creatinine 0.63 and potassium 4.2. Cholesterol 220, LDL 153, HDL 37 Physical Examination: 53-year-old male, alert oriented, appears older than stated age,Blood pressure 157/85, Heart rate 107 Head: Normocephalic. Eyes: Sclerae nonicteric. Neck: Good carotid upstroke, no bruit, no jugular venous distention. Lungs: Decreased breath sounds bilaterally with scattered rhonchi Heart: Regular rate and rhythm, S1-S2, no S3, no rub. No murmur. Abdomen: Soft nontender, positive bowel sounds no organomegaly. Extremities: No edema, intact distal pulses. Impression: 1. Progressive dyspnea, exacerbation of COPD 2. Troponin elevation most likely type II event 3. Chronic tobacco use 4. History of stroke 5. History of hyperlipidemia Plan: 1. Continue patient on aspirin, beta-jhony and statin 2. Obtain an echocardiogram with Doppler 3. Patient would require cardiac evaluation down the road for ischemia once stable from the lung standpoint. Nurse practitioner note has been reviewed, I agree with documented findings and plan of care. Patient was seen and examined. Objective - Vital Signs Vital signs: Vital Signs Temp 98 F 10/30/24 04:55 Pulse 87 10/30/24 04:55 Resp 16 10/30/24 04:55 BP 128/71 10/30/24 04:55 Pulse Ox 96 10/30/24 08:03 FiO2 50 10/29/24 03:58 Intake & Output 10/29/24 10/30/24 10/30/24 18:59 06:59 18:59 Intake Total 358 40 Balance 358 40 Weight 81.647 kg 81.6 kg Intake: IV 40 Invasive Line 1 20 Invasive Line 2 20 Oral 358 Other: Voiding Method Urinal Toilet # Voids 1 - Labs CBC & Chem 7: 10/30/24 06:03 10/30/24 06:03 Labs: Abnormal Lab Results - Last 24 Hours (Table) 10/29/24 10/29/24 10/29/24 Range/Units 07:15 16:25 20:28 WBC (3.8-10.6) k/uL Neutrophils # (1.3-7.7) k/uL Sodium (137-145) mmol/L Carbon Dioxide (22-30) mmol/L Creatinine (0.66-1.25) mg/dL Glucose (74-99) mg/dL POC Glucose (mg/dL) 151 H 141 H (70-110) mg/dL Cholesterol 206.00 H (0.00-200.00) mg/dL LDL Cholesterol, Calc 144.2 H (0.0-131.0) mg/dL 10/30/24 10/30/24 10/30/24 Range/Units 06:03 06:03 06:17 WBC 18.7 H (3.8-10.6) k/uL Neutrophils # 16.5 H (1.3-7.7) k/uL Sodium 135 L (137-145) mmol/L Carbon Dioxide 20 L (22-30) mmol/L Creatinine 0.63 L (0.66-1.25) mg/dL Glucose 171 H (74-99) mg/dL POC Glucose (mg/dL) 175 H (70-110) mg/dL Cholesterol (0.00-200.00) mg/dL LDL Cholesterol, Calc (0.0-131.0) mg/dL
[2024-10-30 11:59] LABS: Glucose,Whole Blood 158 mg/dL (70-110)
[2024-10-30 12:45] VITALS: BP 146/84; PULSE 98; TEMP 98
--- NOTE | 2024-10-30 13:00 | CA ---
Transthoracic Echo Report Name: Al Santos Age: 53 Gender: M : 1970 Exam Date: 10/30/2024 09:14 Exam Location: [facility] Ht (in): 72 Wt (lb): 180 Ordering Physician: Angeles Cruz MD ([id number]) Attending/Referring Phys: Bankruptcy Legal Assistant Jessy Ross RDCS Procedure CPT: Indications: dyspnea Cardiac Hx: Technical Quality: Good Contrast 1: Total Dose (mL): Contrast 2: Total Dose (mL): MEASUREMENTS (Male / Female) Normal Values 2D ECHO LV Diastolic Diameter PLAX 4.8 cm 4.2 - 5.9 / 3.9 - 5.3 cm LV Systolic Diameter PLAX 3.1 cm IVS Diastolic Thickness 1.1 cm 0.6 - 1.0 / 0.6 - 0.9 cm LVPW Diastolic Thickness 1.1 cm 0.6 - 1.0 / 0.6 - 0.9 cm LV Relative Wall Thickness 0.5 RV Internal Dim ED PLAX 3.8 cm LA Systolic Diameter LX 3.8 cm 3.0 - 4.0 / 2.7 - 3.8 cm LV Diastolic Volume MOD 4C 117.1 cm??? LV Systolic Volume MOD 4C 56.0 cm??? LV Ejection Fraction MOD 4C 52.2 % LV Cardiac Index MOD 4C 2783.0 cm???/min???m??? LV Diastolic Length 4C 10.3 cm LV Systolic Length 4C 8.1 cm LV Diastolic Volume MOD 2C 125.9 cm??? LV Systolic Volume MOD 2C 52.0 cm??? LV Ejection Fraction MOD 2C 58.7 % LV Cardiac Index MOD 2C 3366.8 cm???/min???m??? LV Diastolic Length 2C 9.6 cm LV Systolic Length 2C 7.4 cm LA Volume 53.3 cm??? 18 - 58 / 22 - 52 cm??? LA Volume Index 26.1 cm???/m??? 16 - 28 cm???/m??? M-MODE Aortic Root Diameter MM 3.2 cm AV Cusp Separation MM 2.3 cm DOPPLER AV Peak Velocity 163.5 cm/s AV Peak Gradient 10.7 mmHg MV Area PHT 4.7 cm??? Mitral E Point Velocity 147.2 cm/s Mitral A Point Velocity 50.2 cm/s Mitral E to A Ratio 2.9 MV Deceleration Time 161.6 ms TR Peak Velocity 267.7 cm/s TR Peak Gradient 28.7 mmHg Right Ventricular Systolic Press 33.4 mmHg FINDINGS Left Ventricle Left ventricular ejection fraction is estimated at 55-60 %. Left ventricular cavity size normal. Left ventricular wall thickness normal. No obvious regional wall motion abnormalities. Right Ventricle Mild right ventricular dilatation. Right ventricular systolic pressure within normal limits. Right Atrium Normal right atrial size. No right atrial thrombus or mass seen. Left Atrium Mildly increased left atrial area. No left atrial thrombus or mass present. Mitral Valve Structurally normal mitral valve. Trace to mild mitral regurgitation. Aortic Valve Trileaflet aortic valve. No aortic valve stenosis or regurgitation. Tricuspid Valve Structurally normal tricuspid valve. Mild tricuspid regurgitation. Pulmonic Valve Pulmonic valve not well visualized. No pulmonic regurgitation. Pericardium No pericardial or pleural effusion. Aorta Normal size aortic root and proximal ascending aorta. CONCLUSIONS Left ventricular ejection fraction 55-60% RVSP 33 Trace to mild mitral regurgitation Mild tricuspid regurgitation Previewed by: Dr. Yobani Anaya DO (Electronically Signed) Final Date: 30 October 2024 12:59
--- NOTE | 2024-10-30 16:26 | P.PN ---
Subjective Progress Note Date: 10/30/24 Principal diagnosis: Acute hypoxic and hypercapnic respiratory failure secondary to COPD exacerbation This is a 53-year-old male patient, came into the Emergency Department because of increased shortness of breath he is a chronic smoker he smokes around 1.5 packs of cigarettes on a daily basis. He had increased cough and congestion along with worsening shortness of breath. No chest pain. No previous history of coronary artery disease or congestive heart failure. Does not utilize any form of respiratory medications as maintenance. In the emergency department, the patient had a white cell count of 16 with a hemoglobin of 7.6 and a platelet count of 305. Normal coagulation profile. D-dimer was at the 1.3. He did have a component of hypercapnic respiratory failure with a pH of 7.32 with a pCO2 of 48 and pO2 of 420. The patient was initially placed on BiPAP and the patient is currently on 5 L of oxygen by nasal cannula with a pulse ox of 97%. Electrolytes are normal. Potassium level is at 3.3 that is to be replaced. Troponins are minimally elevated at 0.010.05 and 0.04 respectively. proBNP level was 1260. BUN 11 with a creatinine of 0.8. Glucose 135. Calcium is at 8.1. The patient underwent a CTA of the chest in the emergency department on 10/29/2024 and the patient was found to have no evidence of any pulm embolism or aortic dissection. Trace bilateral pleural effusion and compressive atelectasis and some mild interstitial edema was present. Similar findings were also noted on the chest x-ray that showed some subtle scattered opacities and interstitial markings. The patient is currently on DuoNeb nebulized treatments [id number]. The patient will be started on IV Solu-Medrol 60 mg every 6 hours. Empiric antibiotic coverage with Zithromax. The patient will have an echocardiogram. Cardiology is to follow on the case and is on Lovenox for DVT prophylaxis. Patient was seen today on 10/30/2024, patient is feeling better, breathing easier, echocardiogram is basically unremarkable, patient has a trace to mild mitral regurgitation, and very mild pulmonary hypertension with RVSP of 33 patient is on room air with O2 sats of 96% patient remains on COPD medications, nebulizers and IV steroids, and again he is on room air without any distress. Patient has leukocytosis with WBC elevated 0.7 hemoglobin 14.7 electrolytes are normal renal profile is normal CT of the chest on admission showed no evidence of pulmonary embolism, the CT was suggestive of minimal bilateral pleural effusions with compressive atelectasis no clear-cut evidence of pulmonary edema or pneumonia. Objective - Vital Signs Vital signs: Vital Signs Temp 98.0 F 10/30/24 12:00 Pulse 98 10/30/24 12:00 Resp 14 10/30/24 12:00 BP 146/84 10/30/24 12:00 Pulse Ox 96 10/30/24 12:00 FiO2 50 10/29/24 03:58 Intake & Output 10/29/24 10/30/24 10/30/24 18:59 06:59 18:59 Intake Total 358 40 760 Balance 358 40 760 Weight 81.647 kg 81.6 kg Intake: IV 40 40 Invasive Line 1 20 20 Invasive Line 2 20 20 Oral 358 720 Other: Voiding Method Urinal Toilet Toilet # Voids 1 0 # Bowel Movements 0 - Exam Physical exam revealed 53-year-old white male in no distress on room air. Head: Atraumatic normocephalic HEENT: PERRLA, EOMI, nonicteric no neck masses no JVD no stridor Lungs: Diminished breath sounds at the bases no crackles rhonchi or wheezes Cardiac: Distant S1-S2, no S3 gallop. Abdomen: Soft nontender no megaly no rebound no guarding Extremities no clubbing edema or cyanosis Skin: No rashes Neurologic alert oriented x 3 no gross focal deficit Psychiatric: Normal mood affect and no mental status examination - Labs CBC & Chem 7: 10/30/24 06:03 10/30/24 06:03 Labs: Abnormal Lab Results - Last 24 Hours (Table) 10/29/24 10/29/24 10/29/24 Range/Units 07:15 16:25 20:28 WBC (3.8-10.6) k/uL Neutrophils # (1.3-7.7) k/uL Sodium (137-145) mmol/L Carbon Dioxide (22-30) mmol/L Creatinine (0.66-1.25) mg/dL Glucose (74-99) mg/dL POC Glucose (mg/dL) 151 H 141 H (70-110) mg/dL Cholesterol 206.00 H (0.00-200.00) mg/dL LDL Cholesterol, Calc 144.2 H (0.0-131.0) mg/dL HDL Cholesterol (40.00-60.00) mg/dL 10/30/24 10/30/24 10/30/24 Range/Units 06:03 06:03 06:17 WBC 18.7 H (3.8-10.6) k/uL Neutrophils # 16.5 H (1.3-7.7) k/uL Sodium 135 L (137-145) mmol/L Carbon Dioxide 20 L (22-30) mmol/L Creatinine 0.63 L (0.66-1.25) mg/dL Glucose 171 H (74-99) mg/dL POC Glucose (mg/dL) 175 H (70-110) mg/dL Cholesterol 220.00 H (0.00-200.00) mg/dL LDL Cholesterol, Calc 153.9 H (0.0-131.0) mg/dL HDL Cholesterol 37.70 L (40.00-60.00) mg/dL 10/30/24 Range/Units 11:55 WBC (3.8-10.6) k/uL Neutrophils # (1.3-7.7) k/uL Sodium (137-145) mmol/L Carbon Dioxide (22-30) mmol/L Creatinine (0.66-1.25) mg/dL Glucose (74-99) mg/dL POC Glucose (mg/dL) 158 H (70-110) mg/dL Cholesterol (0.00-200.00) mg/dL LDL Cholesterol, Calc (0.0-131.0) mg/dL HDL Cholesterol (40.00-60.00) mg/dL Assessment and Plan Assessment: Impression: Acute hypoxic/hypercapnic respiratory failure likely on the basis of COPD exacerbation. COPD Chronic smoker Shortness of breath secondary to above Abnormal troponins, rule out type II ischemia. Chronic smoker History of CVA Mild leukocytosis Recommendation: Continue bronchodilators including DuoNeb Continue Solu-Medrol and consider transitioning to prednisone in the next 24 hours Continue Zithromax empirically for COPD exacerbation Echocardiogram report was noted Counseled regarding smoking cessation Consider discharge planning in the next 24 hours Time with Patient: Less than 30
== END 2024-10-30 17:39 | disposition home or self-care (01) | DRG 190 ==
LOC: EC 22:07 → 3SCARD 10-29 02:08 → OBSVTOIN 10-29 02:08 → 3SCARD 10-29 14:44
PROVIDERS: ADMIT Hospitalist; ATTEND Hospitalist
PROC: 5A09357 Assistance with Respiratory Ventilation, Less than 24 Consecutive Hours, Continuous Positive Airway Pressure (ICD-10-PCS; principal; 2024-10-28)
DX: J44.1 Chronic obstructive pulmonary disease with (acute) exacerbation (principal); J96.01 Acute respiratory failure with hypoxia; J96.02 Acute respiratory failure with hypercapnia; E78.5 Hyperlipidemia, unspecified; F17.210 Nicotine dependence, cigarettes, uncomplicated; Z86.73 Personal history of transient ischemic attack (TIA), and cerebral infarction without residual deficits; Z71.6 Tobacco abuse counseling; Z79.82 Long term (current) use of aspirin
CPT/HCPCS: 36415; 36600; 71045; 71275; 80053; 80061; 82805; 83036; 83735; 83880; 84484; 85025; 85379; 85610; 85730; 87636; 93005; 93306; 94640; 94660; 94760; 96365; 96367; 96372; 96375; 96376; 99291